=== PATIENT | female | born 1995 | race Caucasian/White ===

== ENCOUNTER 2019-06-10 12:05 | Emergency (ER) | payer MEDICAID, SELFPAY ==
[2019-06-10 12:30] VITALS: BP 124/72; PULSE 96; RESP 18; TEMP 36.6; O2SAT 100; BMI 23.0
[2019-06-10 12:40] VITALS: O2SAT 99
--- NOTE | 2019-06-10 12:41 | XRR_ITS ---
PROCEDURE INFORMATION: Exam: XR Chest, 1 View Exam date and time: 06/10/2019 12:42 PM Age: 24 years old Clinical indication: Cough; Additional info: Cough/congestion TECHNIQUE: Imaging protocol: XR of the chest Views: 1 view. COMPARISON: CR Chest 2 views* [id number] 06/03/2015 1:22 AM FINDINGS: Lungs: Hyperinflation and mild interstitial prominence. No acute infiltrate. Pleural space: No pleural effusion. Heart/Mediastinum: Normal configuration of the heart. Bones/joints: Unremarkable. When correlating with the previous study, no significant interval changes are present. XR/XR chest 1V portable [id number] IMPRESSION: Stable appearance of the chest, not significantly changed from 06/03/2015.
[2019-06-10] MEDS: sodium chloride 0.9% 1,000 ML 999 ML IV (12:57)
--- NOTE | 2019-06-10 13:10 | ED_ITS ---
HPI - General Adult General: Chief complaint: General Medical Stated complaint: cp,congestion,back pain Time Seen by Provider: 06/10/19 12:28 Source: patient Mode of arrival: ambulatory Limitations: no limitations History of Present Illness: HPI narrative: Patient is a 24-year-old female who presents to ED today with complaints of a headache, subjective fever, productive cough, nausea with vomiting, and body aches over the past 2 days; patient reports the cough is caused her to have pain in her chest and shoulders as well as her back but states this is not uncommon as she has chronic back pains; patient states she has not been able to eat or drink much over the past 48 hours due to her nausea; reports 2-3 episodes of vomiting daily-nonbloody; patient denies chance of as she currently has a Mirena Onset (ago): day(s) Relieving factors: eating Exacerbating factors: none Associated symptoms: Reports chest pain, headache(s), nausea and vomiting; Deny dyspnea, malaise, rash, palpitations or syncope Review of Systems Const: Reports: fever (subjective), chills, body aches and change in appetite; Denies: fatigue or malaise Eyes: Denies: change in vision or blurry vision ENMT: Denies: throat pain, enlarged tonsils or painful swallowing Card: Reports: chest pain; Denies: palpitations, irregular heart rhythm, edema, lightheadedness, syncope, pre-syncope, shortness of breath on exertion, shortness of breath when lying down or leg pain with exertion Resp: Reports: productive cough, pain on inspiration, change in phlegm color and chest congestion; Denies: shortness of breath, wheezing, stridor or coughing up blood GI: Reports: nausea and vomiting; Denies: abdominal pain, heartburn/indigestion or diarrhea : Denies: flank pain, difficulty urinating, painful urination, urinary frequency or urinary urgency Musc: Denies: neck pain, extremity pain, extremity swelling or joint pain Skin/Breast: Denies: rash Neuro: Reports: headache; Denies: numbness in extremities, weakness in extremities, changes in sensation, lack of coordination, difficulty walking, dizziness, vertigo or slurred speech PFSH ED PFSH: Statuses (acute, chronic, etc) shown below reflect problem list status as previously entered and may not be historically accurate Social History Smoking and tobacco status: current every day smoker Physical Exam Const: COMMON NORMALS: no apparent distress, average body habitus, oriented x3, no limitations, alert and well nourished HENMT: COMMON NORMALS: normocephalic, head/scalp atraumatic, EAC's normal, TM's normal bilaterally and external nose normal HEAD & SCALP: normocephalic and atraumatic FACE & SINUS: normal facial exam NOSE: external nose normal EXTERNAL AUDITORY CANAL: EAC's normal TYMPANIC MEMBRANE: TM's normal bilaterally MOUTH: oral and palatal mucosa normal THROAT: posterior oropharynx normal, tonsils normal and uvula midline Eye: COMMON NORMALS: PERRL and EOMs intact bilaterally PUPIL: Yes PERRL Neck/C-Spine: COMMON NORMALS: full ROM, no lymphadenopathy, supple and no meningeal signs Chest: COMMONS NORMALS: inspection of chest normal Resp: COMMON NORMALS: normal respiratory effort and clear to auscultation bilaterally AUSCULTATION: clear to auscultation bilaterally Cardio: COMMON NORMALS: regular rate and regular rhythm RATE: regular rate RHYTHM: regular rhythm GI: COMMON NORMALS: normal to inspection, nondistended, normoactive bowel sounds, soft to palpation, non-tender, no hepatosplenomegaly and no masses PALPATION: Yes soft and Yes no hepatosplenomegaly : COMMON NORMALS: Yes no CVA tenderness BLADDER/KIDNEY EXAM: Yes no CVA tenderness Back/Pelvis: COMMON NORMALS: no CVA tenderness, thoraco-lumbar ROM normal and straight leg raise negative bilaterally Extremity: COMMON NORMALS: normal to inspection Neuro: COMMON NORMALS: oriented x3 SENSORIUM/ORIENTATION: Yes alert MENINGEAL SIGNS: Yes no meningeal signs Skin: COMMON NORMALS: no rashes or lesions noted GENERAL SKIN EXAM: no rashes or lesions noted Course Vital Signs: Vital signs: Vital Signs Temperature 97.9 F 06/10/19 12:30 Pulse Rate 96 06/10/19 12:30 Respiratory Rate 18 06/10/19 12:30 Blood Pressure 124/72 06/10/19 12:30 Pulse Oximetry 99 06/10/19 12:40 MDM - General Adult Lab Data: Labs: Lab Results 06/10/19 06/10/19 06/10/19 Range/Units 12:50 12:50 12:50 WBC 5.9 (4.0-10.0) 10^3/ uL RBC 4.63 (4.1-5.3) 10^6/u L Hgb 13.7 (11.5-15.3) g/dL Hct 40.2 (37.0-47.0) % MCV 86.8 (81-99) fL MCH 29.6 (28.0-34.0) pg MCHC 34.1 (30.0-36.0) g/dL RDW 12.1 (12.1-15.1) % Plt Count 290 (130-400) 10^3/c mm MPV 10.9 H (7.4-10.4) fL Neut % (Auto) 71.5 % Lymph % (Auto) 20.3 % [place] % (Auto) 6.0 % Eos % (Auto) 1.0 % Baso % (Auto) 1.0 % Neut # (Auto) 4.2 (1.8-7.7) 10^3/u L Lymph # (Auto) 1.2 (0.8-4.8) 10^3/u L [place] # (Auto) 0.4 (0.2-0.9) 10^3/u L Eos # (Auto) 0.1 (0.0-0.8) 10^3/u L Baso # (Auto) 0.1 (0.0-0.1) 10^3/u L Nucleated RBC % (a uto) 0 % Nucleated RBCs # 0.0 /100WBC Sodium 139 (136-145) mmol/L Potassium 3.7 (3.5-5.1) mmol/L Chloride 101 (98-107) mmol/L Carbon Dioxide 27 (22-29) mmol/L Anion Gap 14.7 (5-19) BUN 10 (6-20) mg/dL Creatinine 0.8 (0.5-0.9) mg/dL GFR Calculation 88.9 L (90-130) mL/min Glucose 79 (74-109) mg/dL Calcium 9.9 (8.5-10.5) mg/dL Total Bilirubin 0.6 (0.15-1.2) mg/dL AST 21 (0-32) U/L ALT 18 (0-33) U/L Alkaline Phosphata se 100 (35-105) IU/L Total Protein 7.8 (6.6-8.7) g/dL Albumin 4.6 (3.5-5.2) g/dL Globulin 3.2 (1.3-4.6) g/dL HCG, Qual Negative (Negative) Urine Color (Yellow) Urine Appearance (CLEAR) Urine pH (5-7) Ur Specific Gravit y (1.005-1.030) Urine Protein (Negative) Urine Glucose (UA) (Normal) Urine Ketones (Negative) Urine Occult Blood (Negative) Urine Nitrate (Negative) Urine Bilirubin (NEGATIVE) Urine Urobilinogen (Negative) mg/dL Ur Leukocyte Dawna ase (Negative) Influenza Type A A g (Negative) POC Influenza B Ag (Negative) 06/10/19 06/10/19 Range/Units 12:50 13:15 WBC (4.0-10.0) 10^3/ uL RBC (4.1-5.3) 10^6/u L Hgb (11.5-15.3) g/dL Hct (37.0-47.0) % MCV (81-99) fL MCH (28.0-34.0) pg MCHC (30.0-36.0) g/dL RDW (12.1-15.1) % Plt Count (130-400) 10^3/c mm MPV (7.4-10.4) fL Neut % (Auto) % Lymph % (Auto) % [place] % (Auto) % Eos % (Auto) % Baso % (Auto) % Neut # (Auto) (1.8-7.7) 10^3/u L Lymph # (Auto) (0.8-4.8) 10^3/u L [place] # (Auto) (0.2-0.9) 10^3/u L Eos # (Auto) (0.0-0.8) 10^3/u L Baso # (Auto) (0.0-0.1) 10^3/u L Nucleated RBC % (a uto) % Nucleated RBCs # /100WBC Sodium (136-145) mmol/L Potassium (3.5-5.1) mmol/L Chloride (98-107) mmol/L Carbon Dioxide (22-29) mmol/L Anion Gap (5-19) BUN (6-20) mg/dL Creatinine (0.5-0.9) mg/dL GFR Calculation (90-130) mL/min Glucose (74-109) mg/dL Calcium (8.5-10.5) mg/dL Total Bilirubin (0.15-1.2) mg/dL AST (0-32) U/L ALT (0-33) U/L Alkaline Phosphata se (35-105) IU/L Total Protein (6.6-8.7) g/dL Albumin (3.5-5.2) g/dL Globulin (1.3-4.6) g/dL HCG, Qual (Negative) Urine Color Yellow (Yellow) Urine Appearance Clear (CLEAR) Urine pH 7 (5-7) Ur Specific Gravit y 1.005 (1.005-1.030) Urine Protein Neg (Negative) Urine Glucose (UA) Norm (Normal) Urine Ketones Negative (Negative) Urine Occult Blood Neg (Negative) Urine Nitrate Negative (Negative) Urine Bilirubin Neg (NEGATIVE) Urine Urobilinogen Norm (Negative) mg/dL Ur Leukocyte Dawna ase Negative (Negative) Influenza Type A A g Negative (Negative) POC Influenza B Ag Negative (Negative) Imaging Data^: CXR: Radiologist's impression: [place] [address] XRay Report Signed Patient: Tejal Frederick Unit #: [id number] : [id number] Age/Sex: 24 / F ADM Date: 06/10/19 Loc: ER Room/Bed: Attending Dr: Ordering Provider/Ordering MD: Karime Cedeno Date of Service: 06/10/19 Procedure(s): XR chest 1V portable [id number] Accession Number(s): [id number] Report Number: [id number] PROCEDURE INFORMATION: Exam: XR Chest, 1 View Exam date and time: 06/10/2019 12:42 PM Age: 24 years old Clinical indication: Cough; Additional info: Cough/congestion TECHNIQUE: Imaging protocol: XR of the chest Views: 1 view. COMPARISON: CR Chest 2 views* [id number] 06/03/2015 1:22 AM FINDINGS: Lungs: Hyperinflation and mild interstitial prominence. No acute infiltrate. Pleural space: No pleural effusion. Heart/Mediastinum: Normal configuration of the heart. Bones/joints: Unremarkable. When correlating with the previous study, no significant interval changes are present. XR/XR chest 1V portable [id number] IMPRESSION: Stable appearance of the chest, not significantly changed from 06/03/2015. Dictated By: Cristi Rowe MD Signed By: Cristi Rowe MD Signed Date/Time: 06/10/19 1346 DD/ 1348 Discharge Plan Discharge Patient Disposition: Home, Self-Care Clinical Impression: Viral illness Condition: Stable Prescriptions: New ondansetron HCl [Zofran] 4 mg tablet 4 mg PO Q6H PRN (Reason: nausea and vomiting) Qty: 14 RF: 0 Discharge Orders: Discharge Order (Routine); Ordered 06/10/19 Ordered By: Karime Cedeno Referrals: Nida Cole MD [Primary Care Provider] - Discharge Diet: Usual diet Discharge Activity: Increase activity as tolerated Stand Alone Forms: Work/School Release Coding Level of Care Code ED Negative Developer for Chg Fwd Exam Problem Focused
[2019-06-10 13:38] LABS: Basophils # 0.1 10^3/uL (0.0-0.1); Eosinophils # 0.1 10^3/uL (0.0-0.8); Hematocrit 40.2 % (37.0-47.0); Hemoglobin 13.7 g/dL (11.5-15.3); Lymphocytes # 1.2 10^3/uL (0.8-4.8); Lymphocytes % 20.3 %; Mean Corpuscular HGB Conc 34.1 g/dL (30.0-36.0); Mean Corpuscular Hemoglobin 29.6 pg (28.0-34.0); Mean Corpuscular Volume 86.8 fL (81-99); Mean Platelet Volume 10.9 fL (7.4-10.4); Monocytes # 0.4 10^3/uL (0.2-0.9); Neutrophils # 4.2 10^3/uL (1.8-7.7); Neutrophils % 71.5 %; Nucleated Red Blood Cells % 0 %; Platelet Count 290 10^3/cmm (130-400); Red Blood Count 4.63 10^6/uL (4.1-5.3); Red Cell Distribution Width 12.1 % (12.1-15.1); White Blood Count 5.9 10^3/uL (4.0-10.0)
[2019-06-10 13:43] LABS: Influenza A by IFA Negative (Negative); Influenza B by IFA Negative (Negative)
[2019-06-10 13:46] LABS: HCG, Serum Qual Negative (Negative)
[2019-06-10 13:46] LABS: Add Urine Microscopic? NO
[2019-06-10 13:49] LABS: Alanine Aminotransferase 18 U/L (0-33); Albumin Level 4.6 g/dL (3.5-5.2); Alkaline Phosphatase 100 IU/L (35-105); Anion Gap 14.7 (5-19); Aspartate Amino Transferase 21 U/L (0-32); Blood Urea Nitrogen 10 mg/dL (6-20); Calcium 9.9 mg/dL (8.5-10.5); Carbon Dioxide 27 mmol/L (22-29); Chloride 101 mmol/L (98-107); Globulin 3.2 g/dL (1.3-4.6); Glomerular Filtration Rate 88.9 mL/min (90-130); Glucose 79 mg/dL (74-109); Potassium 3.7 mmol/L (3.5-5.1); Sodium 139 mmol/L (136-145); Total Bilirubin 0.6 mg/dL (0.15-1.2); Total Protein 7.8 g/dL (6.6-8.7)
[2019-06-10 14:01] LABS: Bilirubin Urine Neg (NEGATIVE); Blood Urine Neg (Negative); Glucose Urine UA Norm (Normal); Ketones Urine Negative (Negative); Leukocyte Esterase Urine Negative (Negative); Nitrate Urine Negative (Negative); Protein Urine Neg (Negative); Specific Gravity, Urine 1.005 (1.005-1.030); Urine Appearance Clear (CLEAR); Urine Color Yellow (Yellow); Urobilinogen Urine Norm (Negative); pH Urine 7 (5-7)
[2019-06-10 14:32] VITALS: BP 96/69; PULSE 80; RESP 17; O2SAT 99
== END 2019-06-10 14:32 | disposition home or self-care (01) ==
PROVIDERS: Emergency Provider Physician Assistant; Family Provider Family Medicine; PCP Family Medicine
DX: B34.9 Viral infection, unspecified (principal); F17.210 Nicotine dependence, cigarettes, uncomplicated
CPT/HCPCS: 36415; 71045; 80053; 81003; 84703; 85025; 87804; 96360; 99283; J7030

== ENCOUNTER → 2019-07-13 15:05 | Outpatient (BNVA) | payer MEDICAID, SELFPAY | PROVIDERS: Family Provider Family Medicine; PCP Family Medicine; Visit Provider Obstetrics & Gynecology | DX: N89.8 Other specified noninflammatory disorders of vagina (principal); R30.0 Dysuria; N73.0 Acute parametritis and pelvic cellulitis; N73.9 Female pelvic inflammatory disease, unspecified | CPT/HCPCS: 81003; 87491; 87591; 87661 ==

== ENCOUNTER 2019-07-18 15:58 | Emergency (ER) | payer MEDICAID, SELFPAY ==
--- NOTE | 2019-07-18 16:15 | ED_ITS ---
Entered by Alexa Kong, acting as scribe for Shayan De La Cruz DO HPI - Back Pain/Injury General: Chief Complaint: Back Pain/Injury Stated Complaint: back pain Time Seen by Provider: 07/18/19 16:15 Review of Systems ENMT: Denies: enlarged tonsils PFSH ED PFSH: Medical History Displacement of lumbar disc with radiculopathy Encounter for long-term opiate analgesic use Opioid contract exists Pelvic pain in female Peripheral neuralgia Smoker Surgical History (Updated 07/19/19 @ 14:48 by CHAI Mcmullen) Previous back surgery 06/08/2018- Dr. Lizama, bilateral L4-L5 hemilaminotomy/discectomy/foraminotomy S/P plastic surgery 2007 after dog bite to face Social History Smoking and tobacco status: current every day smoker cigarettes Packs smoked per day: 0.5 Alcohol intake: never Course ED course: Reviewed and discussed patient with Raghav Carmen. Agree with assessment and plan Vital Signs: Vital signs: Vital Signs Pulse Rate 72 07/18/19 18:00 Respiratory Rate 16 07/18/19 18:00 Blood Pressure 104/61 07/18/19 18:00 Pulse Oximetry 98 07/18/19 18:00 Discharge Plan Discharge Patient Disposition: Home, Self-Care Clinical Impression: Chronic back pain Qualifiers: Back pain location: low back pain Back pain laterality: bilateral Sciatica presence: with sciatica Sciatica laterality: bilateral sciatica Qualified Code(s): M54.42 - Lumbago with sciatica, left side Condition: Stable Prescriptions: No Action Mirena 20 mcg/24 hours (5 yrs) 52 mg intrauterine device INTRAUTERI RF: 0 doxycycline hyclate 100 mg capsule 100 mg PO BID 14 Days Qty: 28 RF: 0 metronidazole [Flagyl] 500 mg tablet 500 mg PO BID 14 Days Qty: 28 RF: 0 hydrocodone-acetaminophen 10-325 mg tablet 1 tab PO Q6H PRN (Reason: pain) 30 Days Qty: 120 RF: 0 hydrocodone-acetaminophen 10-325 mg tablet 1 tab PO Q6H PRN (Reason: pain) 30 Days Qty: 120 RF: 0 Discharge Orders: Discharge Order (Routine); Ordered 07/18/19 Ordered By: Trent Carmen Referrals: Nida Cole MD [Primary Care Provider] - Discharge Diet: Usual diet Discharge Activity: Resume usual activity Patient Instructions: Low Back Strain (ED) Activity Restrictions/Additional Instructions: Keep appointment 1:00 tomorrow at the pain management office. Discharge Date/Time: 07/18/19 18:01 Coding Level of Care Code ED Food Service Associate for g Sydni The documentation recorded by the Dilan ambrosio Bridget Annette, accurately reflects the service I personally performed and the decisions made by Dorothy vazquez Curtis L, DO Jul 18, 2019 15:58
[2019-07-18 16:16] VITALS: BP 106/65; PULSE 75; RESP 16; O2SAT 99; BMI 23.0
[2019-07-18] MEDS: HYDROcodone-acetaminophen 7.5-325 mg Tablet 1 TAB PO (16:40)
--- NOTE | 2019-07-18 16:42 | W.ED.BACK ---
HPI - Back Pain/Injury General: Chief Complaint: Back Pain/Injury Stated Complaint: back pain Time Seen by Provider: 07/18/19 16:15 History of Present Illness: HPI Narrative: Patient missed pain management appointment on 221 now out of pain medicine says she cannot get another appointment needs her medicine. Pertinent past history: prior back pain Onset (ago): year(s) Timing: constant and progressively worsening Severity: moderate Similar Symptoms Previously: Yes Review of Systems Narrative: Patient is desiring a prescription for pain medicine. Has chronic back pain worsening exacerbated by work. Musc: Reports: back pain Psych: Denies: anxiety or depression PFSH ED PFSH: Social History Smoking and tobacco status: current every day smoker cigarettes Packs smoked per day: 0.5 Alcohol intake: never Physical Exam Const: COMMON NORMALS: no apparent distress Psych: COMMON NORMALS: mental status grossly normal Course Vital Signs: Vital signs: Vital Signs Pulse Rate 75 07/18/19 16:16 Respiratory Rate 16 07/18/19 16:16 Blood Pressure 106/65 07/18/19 16:16 Pulse Oximetry 99 07/18/19 16:16 MDM - Back Pain/Injury MDM Narrative: Medical decision making narrative: I spoke with the pain management clinic they have an appointment at 1300 for her tomorrow. Strong encourage patient to keep that appointment we will give her 1 pain pill here to help with her pain and she is to follow-up on her appointment. Discharge Plan Discharge Prescriptions: No Action hydrocodone-acetaminophen 10-325 mg tablet 1 tab PO Q6H PRNRF: 0 Mirena 20 mcg/24 hours (5 yrs) 52 mg intrauterine device INTRAUTERI RF: 0 doxycycline hyclate 100 mg capsule 100 mg PO BID 14 Days Qty: 28 RF: 0 metronidazole [Flagyl] 500 mg tablet 500 mg PO BID 14 Days Qty: 28 RF: 0 Coding Level of Care Code ED Emd Special Education Teacher for Adriana Troy
[2019-07-18 18:00] VITALS: BP 104/61; PULSE 72; RESP 16; O2SAT 98
== END 2019-07-18 18:01 | disposition home or self-care (01) ==
LOC: ER 16:53
PROVIDERS: Emergency Provider Nurse Practitioner Family; Family Provider Family Medicine; PCP Family Medicine
DX: M54.9 Dorsalgia, unspecified (principal); G89.29 Other chronic pain; F17.210 Nicotine dependence, cigarettes, uncomplicated; Z79.891 Long term (current) use of opiate analgesic
CPT/HCPCS: 12345; 99281; 99283

== ENCOUNTER → 2019-07-19 14:16 | Outpatient (BNVA) | payer MEDICAID, SELFPAY | PROVIDERS: Family Provider Family Medicine; PCP Family Medicine; Visit Provider Nurse Practitioner | DX: G89.29 Other chronic pain (principal); M54.42 Lumbago with sciatica, left side; M54.41 Lumbago with sciatica, right side; F17.210 Nicotine dependence, cigarettes, uncomplicated; Z79.891 Long term (current) use of opiate analgesic; Z71.6 Tobacco abuse counseling | CPT/HCPCS: 99214 ==

== ENCOUNTER 2019-08-01 14:22 | Emergency (ER) | payer MEDICAID, SELFPAY ==
[2019-08-01 14:27] VITALS: BP 127/82; PULSE 86; RESP 16; TEMP 36.4; O2SAT 100; BMI 21.7
--- NOTE | 2019-08-01 14:31 | ED_ITS ---
Entered by Francisca Roberson, acting as scribe for Frances Dietrich Aug 01, 2019 14:22 HPI - Abdominal Pain General: Chief Complaint: Abdominal Pain Stated Complaint: FEVER, COUGH Time Seen by Provider: 08/01/19 14:25 Source: patient and RN notes reviewed Mode of arrival: ambulatory Limitations: no limitations History of Present Illness: HPI narrative: 24 yo female presents to ED with complaints of abdominal pain and fever (patient is afbrile here). She states she has RUQ abdominal pain that began 3 days ago. The patient has past history of pelvic inflammatory disease. She denies any vaginal discharge or bleeding presently. She has been on her antibiotics for PID for at least 2 weeks. Her abdominal pain began today. She has had associated nausea and vomiting. She denies any history of gallbladder disease or other surgeries on her abdomen. She denies any right lower quadrant abdominal pain. MD elicited complaint: abdominal pain Pertinent past history: other (pelvic inflammatory disease) Onset (ago): day(s) (2) Pain Consistency: constant Location: RUQ Severity: moderate Quality: aching Radiation: none Migration to: no migration Exacerbating factors: nothing Relieving factors: nothing Context: history of similar episodes Associated Symptoms: Reports no associated symptoms and vomiting; Denies chills, coffee ground emesis, constipation, GI cramping, diarrhea, dysuria, fever(s), hematochezia, hematuria, hematemesis, melena, nausea and syncope Treatments prior to arrival: NSAIDs Review of Systems General: Reports: other (negative unless marked) Const: Denies: fever, chills, body aches, fatigue, malaise or diaphoresis Eyes: Denies: change in vision or blurry vision ENMT: Denies: throat pain, painful swallowing, hoarseness, ear pain, ear discharge, Change in hearing or nasal discharge Card: Denies: chest pain, palpitations, irregular heart rhythm, syncope, pre- syncope, shortness of breath on exertion or shortness of breath when lying down Resp: Denies: shortness of breath, productive cough, non-productive cough, wheezing, coughing up blood or chest congestion GI: Reports: vomiting; Denies: nausea, vomiting blood, coffee grounds in vomit, diarrhea, constipation, cramping, blood in stool or black tarry stool : Denies: flank pain, painful urination, urinary frequency, urinary urgency, decreased urine ouput, urinary incontinence or blood in urine Musc: Denies: neck pain, back pain, extremity pain, extremity swelling, joint pain, joint swelling, joint warmth or joint stiffness Skin/Breast: Denies: rash, skin tenderness or yellow skin Neuro: Denies: headache, numbness in extremities, weakness in extremities, changes in sensation, lack of coordination, difficulty walking, dizziness, vertigo or confusion Endo: Denies: excessive thirst, tired all the time, cold intolerance, excessive sweating, flushing or hot flashes Gómez/Lymph: Denies: easy bruising, easy bleeding, petechiae or enlarged lymph nodes All/Imm: Denies: hives, throat swelling, tongue swelling, facial swelling or acute wheezing PFSH ED PFSH: Medical History Displacement of lumbar disc with radiculopathy Encounter for long-term opiate analgesic use Opioid contract exists Pelvic pain in female Peripheral neuralgia Smoker Surgical History Previous back surgery 06/08/2018- Dr. Lizama, bilateral L4-L5 hemilaminotomy/discectomy/foraminotomy S/P plastic surgery 2007 after dog bite to face Family History Grandmother Lung cancer maternal Mother Ovarian cancer Social History Smoking and tobacco status: current every day smoker cigarettes Packs smoked per day: 0.5 Alcohol intake: never Physical Exam Const: COMMON NORMALS: no apparent distress, oriented x3, no limitations, healthy appearing and well nourished EXAM LIMITATIONS: no altered mental status GENERAL APPEARANCE: cooperative, well kempt and well developed ORIENTATION/CONSCIOUSNESS: Yes awake HENMT: COMMON NORMALS: normocephalic, head/scalp atraumatic, hearing grossly normal bilaterally, external ears normal, EAC's normal, external nose normal and moist oral mucous membranes HEAD & SCALP: normal to inspection, normocephalic and atraumatic FACE & SINUS: normal facial exam and face symmetric NOSE: external nose normal and nares normal EXTERNAL EAR: Yes external ears normal EXTERNAL AUDITORY CANAL: EAC's normal MOUTH: oral and palatal mucosa normal and tongue normal Eye: COMMON NORMALS: PERRL, EOMs intact bilaterally, conjunctivae normal and no scleral icterus GENERAL EYE: normal appearance of both eyes and normal light reflex CONJUNCTIVA: Yes conjunctivae normal SCLERA: sclerae normal CORNEA: Yes corneas normal PUPIL: Yes PERRL DIRECT OPHTHALMOSCOPY: Yes normal light reflex Neck/C-Spine: COMMON NORMALS: full ROM, no lymphadenopathy, supple, no meningeal signs and no JVD GENERAL: Yes normal visual inspection and Yes trachea midline CERVICAL SPINE: Yes cervical ROM normal Chest: COMMONS NORMALS: inspection of chest normal and palpation of chest normal Resp: COMMON NORMALS: normal respiratory effort, no retractions, no use of accessory muscles and clear to auscultation bilaterally EFFORT & INSPECTION: Yes able to speak in complete sentences AUSCULTATION: clear to auscultation bilaterally Cardio: COMMON NORMALS: no JVD, regular rate, regular rhythm, S1 normal heart sound, S2 normal heart sound, no gallops, no clicks, no murmurs and no rub JUGULAR VENOUS DISTENTION: no JVD RATE: regular rate RHYTHM: regular rhythm HEART SOUNDS: S1 normal and S2 normal GI: COMMON NORMALS: soft to palpation, no hepatosplenomegaly and no masses INSPECTION: Yes normal to inspection PALPATION: Yes soft, Yes tender Details: RUQ (Mild without rebound or guarding) and Yes no hepatosplenomegaly : COMMON NORMALS: Yes no CVA tenderness BLADDER/KIDNEY EXAM: Yes no CVA tenderness Back/Pelvis: COMMON NORMALS: no CVA tenderness, thoracic and lumbar spine normal to inspection, no thoracic nor lumbar tenderness and thoraco-lumbar ROM normal Extremity: COMMON NORMALS: normal to inspection, full ROM, normal capillary refill, no joint enlargement, no clubbing, cyanosis or edema and no calf tenderness Neuro: COMMON NORMALS: oriented x3, CN's II-XII intact bilaterally, moves all extremities, no focal motor deficits and no sensory deficits noted MENINGEAL SIGNS: Yes no meningeal signs Psych: COMMON NORMALS: mental status grossly normal, thought process normal, cooperative, affect normal, speech normal and activity/motor behavior normal APPEARANCE: Yes well kempt SPEECH: Yes normal speech THOUGHT PROCESS: normal thought process Skin: COMMON NORMALS: no rashes or lesions noted, skin turgor normal, no jaundice, no petechiae and no mottling GENERAL SKIN EXAM: no rashes or lesions noted and turgor normal Course ED course: Arrival -patient arrives with right upper quadrant pain and subje ctive fever with nausea and vomiting. She is afebrile here and her vital signs are stable. She is recently been treated for pelvic inflammatory disease but claims to be taking her medication and denies any vaginal discharge or bleeding. Her differential includes gallbladder disease, pyelonephritis, Luiz-Efra Shayan syndrome, occult pneumonia among others. As the patient has no objective fever here coughing pneumonia is ruled out. We will proceed with work-up for the remaining as well as other possible differential diagnosis. Vital Signs: Vital signs: Vital Signs Temperature 97.5 F L 08/01/19 14:27 Pulse Rate 59 L 08/01/19 17:41 Respiratory Rate 18 08/01/19 17:41 Blood Pressure 119/65 08/01/19 17:41 Pulse Oximetry 98 08/01/19 17:41 MDM - Abdominal Pain Lab Data: Labs: Lab Results 08/01/19 08/01/19 08/01/19 Range/Units 14:50 14:50 14:50 WBC 4.7 (4.0-10.0) 10^3/ uL RBC 5.09 (4.1-5.3) 10^6/u L Hgb 15.3 (11.5-15.3) g/dL Hct 46.9 (37.0-47.0) % MCV 92.1 (81-99) fL MCH 30.1 (28.0-34.0) pg MCHC 32.6 (30.0-36.0) g/dL RDW 12.4 (12.1-15.1) % Plt Count 246 (130-400) 10^3/c mm MPV 10.2 (7.4-10.4) fL Neut % (Auto) 71.6 % Lymph % (Auto) 23.4 % Chase % (Auto) 2.6 % Eos % (Auto) 1.1 % Baso % (Auto) 1.1 % Neut # (Auto) 3.4 (1.8-7.7) 10^3/u L Lymph # (Auto) 1.1 (0.8-4.8) 10^3/u L Chase # (Auto) 0.1 L (0.2-0.9) 10^3/u L Eos # (Auto) 0.1 (0.0-0.8) 10^3/u L Baso # (Auto) 0.1 (0.0-0.1) 10^3/u L Nucleated RBC % (a uto) 0 % Nucleated RBCs # 0.0 /100WBC Sodium 139 (136-145) mmol/L Potassium 3.9 (3.5-5.1) mmol/L Chloride 103 (98-107) mmol/L Carbon Dioxide 24 (22-29) mmol/L Anion Gap 15.9 (5-19) BUN 7 (6-20) mg/dL Creatinine 0.6 (0.5-0.9) mg/dL GFR Calculation 123.9 (90-130) mL/min Glucose 98 (65-115) mg/dL Calculated Osmolal ity 284 L (285-295) mOsm/k g Calcium 10.0 (8.5-10.5) mg/dL Total Bilirubin 0.6 (0.15-1.2) mg/dL AST 22 (0-32) U/L ALT 13 (0-33) U/L Alkaline Phosphata se 58 (35-105) IU/L Total Protein 7.9 (6.6-8.7) g/dL Albumin 4.8 (3.5-5.2) g/dL Globulin 3.1 (1.3-4.6) g/dL Lipase 43 (13-60) U/L HCG, Qual Negative (Negative) Urine Color (Yellow) Urine Appearance (CLEAR) Urine pH (5-7) Ur Specific Gravit y (1.005-1.030) Urine Protein (Negative) Urine Glucose (UA) (Normal) Urine Ketones (Negative) Urine Blood (Negative) Urine Nitrate (Negative) Urine Bilirubin (NEGATIVE) Urine Urobilinogen (Negative) mg/dL Ur Leukocyte Dawna ase (Negative) Urine RBC (0-2) /hpf Urine WBC (0-5) /hpf Ur Squamous Epith Cells (0-5) Urine Bacteria (NONE) 07/31/ Range/Units 15:00 WBC (4.0-10.0) 10^3/ uL RBC (4.1-5.3) 10^6/u L Hgb (11.5-15.3) g/dL Hct (37.0-47.0) % MCV (81-99) fL MCH (28.0-34.0) pg MCHC (30.0-36.0) g/dL RDW (12.1-15.1) % Plt Count (130-400) 10^3/c mm MPV (7.4-10.4) fL Neut % (Auto) % Lymph % (Auto) % Chase % (Auto) % Eos % (Auto) % Baso % (Auto) % Neut # (Auto) (1.8-7.7) 10^3/u L Lymph # (Auto) (0.8-4.8) 10^3/u L Chase # (Auto) (0.2-0.9) 10^3/u L Eos # (Auto) (0.0-0.8) 10^3/u L Baso # (Auto) (0.0-0.1) 10^3/u L Nucleated RBC % (a uto) % Nucleated RBCs # /100WBC Sodium (136-145) mmol/L Potassium (3.5-5.1) mmol/L Chloride (98-107) mmol/L Carbon Dioxide (22-29) mmol/L Anion Gap (5-19) BUN (6-20) mg/dL Creatinine (0.5-0.9) mg/dL GFR Calculation (90-130) mL/min Glucose (65-115) mg/dL Calculated Osmolal ity (285-295) mOsm/k g Calcium (8.5-10.5) mg/dL Total Bilirubin (0.15-1.2) mg/dL AST (0-32) U/L ALT (0-33) U/L Alkaline Phosphata se (35-105) IU/L Total Protein (6.6-8.7) g/dL Albumin (3.5-5.2) g/dL Globulin (1.3-4.6) g/dL Lipase (13-60) U/L HCG, Qual (Negative) Urine Color Straw (Yellow) Urine Appearance Clear (CLEAR) Urine pH 7 (5-7) Ur Specific Gravit y 1.005 (1.005-1.030) Urine Protein Neg (Negative) Urine Glucose (UA) Norm (Normal) Urine Ketones Negative (Negative) Urine Blood Neg (Negative) Urine Nitrate Negative (Negative) Urine Bilirubin Neg (NEGATIVE) Urine Urobilinogen Norm (Negative) mg/dL Ur Leukocyte Dawna ase Negative (Negative) Urine RBC None (0-2) /hpf Urine WBC None (0-5) /hpf Ur Squamous Epith Cells 0-4 H (0-5) Urine Bacteria Trace (NONE) Imaging Data ^: US: Radiologist's impression: [place] [address] Ultrasound Report Signed Patient: Jose Frederick #: [id number] : 1995Acct#:[id number] Age/Sex: 24 / FADM Date: 08/01/19 Loc: ERRoom/Bed: Attending Dr: Ordering Provider/Ordering MD: Frances Dietrich DO Date of Service: 08/01/19 Procedure(s): US gall bladder [id number] Accession Number(s): [id number] Report Number: [id number] WS: [id number] Gallbladder ultrasound, 08/01/2019 Clinical Data: Pain Comparison: None. Findings: The gallbladder shows no sludge or stone. The wall measures 0.1 cm with no pericholecystic fluid. The common bile duct is 0.1 cm and there are no intrahepatic ductal abnormalities. Liver shows no cysts, masses or dilated intrahepatic ducts. The pancreas is not obscured by overlying bowel gas, and no cyst, pseudocyst, or evidence of pancreatitis is noted. Right kidney measures 4.21 x 4.92 x 10.7 cm and no cyst, masses or hydronephrosis can be seen. The aorta and inferior vena cava show no vascular abnormalities. US/US gall bladder [id number] Impression: Negative gallbladder ultrasound. Dictated By:Pearl Apple MD Signed By:Pearl Apple MDSigned Date/Time:08/01/[address] [address] Ultrasound Report Signed Patient: Jose Frederick #: [id number] : 1995Acct#:[id number] Age/Sex: 24 / FADM Date: 08/01/19 Loc: ERRoom/Bed: Attending Dr: Ordering Provider/Ordering MD: Frances Dietrich DO Date of Service: 08/01/19 Procedure(s): US transvaginal 01653 Accession Number(s): [id number] Report Number: [id number] WS: [id number] Pelvic ultrasound, 08/01/2019 Clinical Data: Pain Comparison: None. Findings: The uterus measures 3.96 cm x 5.5 cm x 4.0 cm. The endometrium is 0.3 cm. No intrauterine or abnormal intrauterine mass is seen. Areas and IUD in the endometrium The left ovary measures 3.0 cm x 2.1 cm x 1.9 cm with follicular cysts but no masses. The right ovary measures 3.3 cm x 2.4 cm x 1.8 cm with follicular cysts but no masses.. There is a small amount of free fluid in the cul-de-sac. US/US transvaginal [id number] Impression: 1. Intrauterine device in proper location in the endometrium of the uterus. 2. Minimal fluid in the cul-de-sac. Dictated By:Pearl Apple MD Signed By:Pearl Appleigned Date/Time:08/01/19 Discharge Plan Discharge Patient Disposition: Home, Self-Care Clinical Impression: Abdominal pain Qualifiers: Abdominal location: right upper quadrant Qualified Code(s): R10.11 - Right upper quadrant pain Condition: Stable Prescriptions: No Action Mirena 20 mcg/24 hours (5 yrs) 52 mg intrauterine device See Rx Instructions .ROUTE .COMPLEX RF: 0 hydrocodone-acetaminophen 10-325 mg tablet 1 tab PO Q6H PRN (Reason: pain) 30 Days Qty: 120 RF: 0 methocarbamol 750 mg tablet 750 mg PO TID PRN (Reason: Spasms) RF: 0 Discharge Orders: Discharge Order (Routine); Ordered 08/01/19 Ordered By: Frances Dietrich Referrals: Wing Raymond MD [Physician] - 1-3 days Nida Cole MD [Primary Care Provider] - Federico Goncalves MD [Physician] - 1-3 days Discharge Diet: Advance as tolerated Discharge Activity: Increase activity as tolerated Patient Instructions: Abdominal Pain (ED) Activity Restrictions/Additional Instructions: Please return to the ER immediately for any of the signs or symptoms listed on your discharge instruction sheets, worsening/changing of your symptoms, you are not getting better as quickly as expected, or for ANY other cause or concerns. If your pain worsens or changes in any way please return to the ER immediately for recheck. Follow-up with Dr. Cole or Dr. Raymond to ensure your pelvic inflammatory disease has completely resolved. Follow-up with Dr. Goncalves for further evaluation of gallbladder dysfunction. Stand Alone Forms: Work/School Release Discharge Date/Time: 08/01/19 17:42 Coding Level of Care Code ED Buyer Liaison for Chg Fwd Exam Comprehensive The documentation recorded by the Da ambrosio Valerie R, accurately reflects the service I personally performed and the decisions made by , Frances Dietrich Aug 01, 2019 14:22
--- NOTE | 2019-08-01 14:42 | PC.PHAR ---
pt had rx filled on 07/16/2019 for doxycycline hyclate 100mg bid for 14 days and metronnidazole 500mg bid for 14 days-pt states she finished these medications but isnt sure how long ago
[2019-08-01 14:52] VITALS: RESP 18; O2SAT 100
[2019-08-01] MEDS: morphine 4 mg/mL SDV 1 mL IVP (14:52)
[2019-08-01] MEDS: ondansetron 2 mg/ML SDV 2 mL 4 MG IVP (14:52)
[2019-08-01] MEDS: sodium chloride 0.9% 1,000 ML 100 ML IV (14:56)
[2019-08-01 14:59] LABS: Basophils # 0.1 10^3/uL (0.0-0.1); Basophils % 1.1 %; Eosinophils # 0.1 10^3/uL (0.0-0.8); Eosinophils % 1.1 %; Hematocrit 46.9 % (37.0-47.0); Hemoglobin 15.3 g/dL (11.5-15.3); Lymphocytes # 1.1 10^3/uL (0.8-4.8); Lymphocytes % 23.4 %; Mean Corpuscular HGB Conc 32.6 g/dL (30.0-36.0); Mean Corpuscular Hemoglobin 30.1 pg (28.0-34.0); Mean Corpuscular Volume 92.1 fL (81-99); Mean Platelet Volume 10.2 fL (7.4-10.4); Monocytes # 0.1 10^3/uL (0.2-0.9); Monocytes % 2.6 %; Neutrophils # 3.4 10^3/uL (1.8-7.7); Neutrophils % 71.6 %; Nucleated Red Blood Cells % 0 %; Platelet Count 246 10^3/cmm (130-400); Red Blood Count 5.09 10^6/uL (4.1-5.3); Red Cell Distribution Width 12.4 % (12.1-15.1); White Blood Count 4.7 10^3/uL (4.0-10.0)
[2019-08-01 15:17] LABS: HCG, Serum Qual Negative (Negative)
[2019-08-01 15:18] LABS: Alanine Aminotransferase 13 U/L (0-33); Albumin Level 4.8 g/dL (3.5-5.2); Alkaline Phosphatase 58 IU/L (35-105); Anion Gap 15.9 (5-19); Aspartate Amino Transferase 22 U/L (0-32); Blood Urea Nitrogen 7 mg/dL (6-20); Carbon Dioxide 24 mmol/L (22-29); Chloride 103 mmol/L (98-107); Globulin 3.1 g/dL (1.3-4.6); Glomerular Filtration Rate 123.9 mL/min (90-130); Glucose 98 mg/dL (65-115); Lipase 43 U/L (13-60); Osmolality Calculated 284 mOsm/kg (285-295); Potassium 3.9 mmol/L (3.5-5.1); Sodium 139 mmol/L (136-145); Total Bilirubin 0.6 mg/dL (0.15-1.2); Total Protein 7.9 g/dL (6.6-8.7)
[2019-08-01 15:37] LABS: Urine Appearance Clear (CLEAR); Urine Color Straw (Yellow)
[2019-08-01 15:38] LABS: Bilirubin Urine Neg (NEGATIVE); Blood Urine Neg (Negative); Glucose Urine UA Norm (Normal); Ketones Urine Negative (Negative); Leukocyte Esterase Urine Negative (Negative); Nitrate Urine Negative (Negative); Protein Urine Neg (Negative); Specific Gravity, Urine 1.005 (1.005-1.030); Urobilinogen Urine Norm (Negative); pH Urine 7 (5-7)
[2019-08-01 15:39] LABS: Add Urine Culture? No; Bacteria Urine TRACE; Squamous Epithelial Cell Urine 0-4 (0-5)
--- NOTE | 2019-08-01 15:39 | CT_ITS ---
WS: [id number] CT scan of the abdomen and pelvis with IV contrast. Additional two-dimensional coronal and sagittal r econstruction was performed. 08/01/2019 Clinical Data: Abdominal Pain - RT Comparison: CT abdomen and pelvis, 12/14/2014 DLP: 585.[address] scans at [facility] use at least one of these dose optimization techniques: automat ed exposure control; mA and/or kV adjustment per patient size (includes targeted exams where dose is matched to clinical indication); or iterative reconstruction. Findings: The lower lungs show no nodules, masses or effusions. The liver, gallbladder, spleen, adrenal glands and pancreas are normal. The kidneys show equal bilateral contrast excretion with no cyst or masses. The abdominal aorta is normal in size. No appendicitis or diverticulitis is seen. The stomach, small bowel and colon show no abnormalities. No abscess, adenopathy, ascites, mass, obstruction or free air is seen. The bladder is unremarkable. There is an IUD in the region of the uterus. No inguinal hernia is seen. The bones of the lower thorax, lumbar spine, pelvis, and hips are normal. CT/CT abdomen pelvis w con* [id number] Impression: Negative CT scan of the abdomen and pelvis.
[2019-08-01] MEDS: iohexol 300 mg/mL 100 mL Btl IV (16:51)
[2019-08-01 17:41] VITALS: BP 119/65; PULSE 59; RESP 18; O2SAT 98
--- NOTE | 2019-08-02 13:56 | DCPLANNER ---
wellness spa manager had message to schedule a follow up appointment for patient with [facility] and [facility]. wellness spa manager called [facility], gave clinic patients information. wellness spa manager was told that patients information, was told that patients information would be printed and reviewed. wellness spa manager called [facility], spoke with Svetlana, a follow up appointment was scheduled for Saturday, August 10, 2019 at 11:[address] Scott. wellness spa manager called patient and informed patient of the scheduled appointment and that a referral had been made to [facility].
--- NOTE | 2019-08-03 09:12 | DCPLANNER ---
Patient has a follow up appointment scheduled for Tuesday, August 13, 2019 with [facility]. Clinic will call patient with appointment information.
--- NOTE | 2019-08-24 14:57 | DCPLANNER ---
Patient did attend appointments scheduled with [facility] and [facility].
== END 2019-08-01 17:42 | disposition home or self-care (01) ==
PROVIDERS: Emergency Provider Emergency Medicine; Family Provider Family Medicine; PCP Family Medicine
DX: R10.9 Unspecified abdominal pain (principal); F17.210 Nicotine dependence, cigarettes, uncomplicated
CPT/HCPCS: 12345; 36415; 74177; 76705; 76830; 80053; 81001; 83690; 84703; 85025; 96361; 96374; 96375; 99282; 99283; J2270; J2405; J7030; Q9967

== ENCOUNTER → 2019-08-22 15:55 | Outpatient (BNVA) | payer MEDICAID, SELFPAY | PROVIDERS: Family Provider Family Medicine; PCP Family Medicine; Referring Provider Emergency Medicine; Visit Provider Obstetrics & Gynecology Female Pelvic Medicine and Reconstructive Surgery | DX: R10.2 Pelvic and perineal pain (principal); Z86.19 Personal history of other infectious and parasitic diseases; F17.200 Nicotine dependence, unspecified, uncomplicated; R10.31 Right lower quadrant pain | CPT/HCPCS: 81000; 87491; 87591; 87661 ==

== ENCOUNTER → 2019-09-13 09:19 | Outpatient (BNVA) | payer MEDICAID, SELFPAY | PROVIDERS: Family Provider Family Medicine; PCP Family Medicine; Visit Provider Nurse Practitioner | DX: M51.16 Intervertebral disc disorders with radiculopathy, lumbar region (principal); M54.9 Dorsalgia, unspecified; F17.200 Nicotine dependence, unspecified, uncomplicated; Z79.891 Long term (current) use of opiate analgesic; Z71.6 Tobacco abuse counseling | CPT/HCPCS: 99214 ==

== ENCOUNTER 2019-09-25 12:28 | Emergency (ER) | payer MEDICAID, SELFPAY ==
[2019-09-25 12:39] VITALS: BP 118/74; PULSE 88; RESP 14; TEMP 36.6; O2SAT 100; BMI 21.9
[2019-09-25 13:52] VITALS: BP 126/78; PULSE 76; RESP 18; O2SAT 98
--- NOTE | 2019-10-08 00:25 | W.ED.BACK ---
HPI - Back Pain/Injury General: Chief Complaint: Back Pain/Injury Stated Complaint: back pain Time Seen by Provider: 09/25/19 13:38 History of Present Illness: HPI Narrative: Chronic low back pain at the pain medicine MD elicited complaint: back pain Pertinent past history: prior back pain Onset (ago): year(s) Timing: constant and progressively worsening Severity: moderate Similar Symptoms Previously: Yes Quality: aching Location: lumbar spine Radiation: none Exacerbating factors: movement, walking and lifting Relieving factors: immobilization Associated symptoms: Reports no associated symptoms; Deny abdominal pain, chills, fever(s), nausea or vomiting Review of Systems Const: Denies: fever(s), chills or body aches Eyes: Denies: change in vision or blurry vision ENMT: Denies: throat pain or nasal congestion Card: Denies: chest pain or dyspnea on exertion Resp: Denies: dyspnea, productive cough or non-productive cough GI: Denies: abdominal pain, nausea or vomiting Musc: Reports: back pain; Denies: extremity pain Skin/Breast: Denies: rash Neuro: Denies: headache(s) Psych: Denies: anxiety or depression Gómez/Lymph: Denies: easy bruising PFSH ED PFSH: Medical History (Updated 10/03/19 @ 00:00 by ) Displacement of lumbar disc with radiculopathy Gastric ulcer Pelvic inflammatory disease Peripheral neuralgia Surgical History H/O esophagogastroduodenoscopy Previous back surgery 06/08/2018- Dr. Lizama, bilateral L4-L5 hemilaminotomy/discectomy/foraminotomy S/P plastic surgery 2007 after dog bite to face Family History Grandmother Lung cancer maternal Mother Ovarian cancer Denies family history of Anesthesia complication Bleeding disorder Social History Smoking and tobacco status: current every day smoker cigarettes Packs smoked per day: 0.5 Alcohol intake: never History of recent travel: No Female Reproductive History: Para: 2 Spontaneous abortions: Yes (2) Physical Exam Const: COMMON NORMALS: no acute distress, average body habitus and patient oriented x3 HENMT: COMMON NORMALS: normocephalic HEAD & SCALP: normal to inspection and normocephalic FACE & SINUS: normal facial exam Eye: COMMON NORMALS: conjunctivae normal GENERAL EYE: appearance normal, both eyes and all related structures CONJUNCTIVA: Yes conjunctivae normal Neck/C-Spine: COMMON NORMALS: no JVD Chest: COMMONS NORMALS: normal inspection of the chest Resp: COMMON NORMALS: normal respiratory effort and clear to auscultation bilaterally AUSCULTATION: clear to auscultation bilaterally Cardio: COMMON NORMALS: no JVD, regular rate and regular rhythm RATE: regular rate RHYTHM: regular rhythm GI: COMMON NORMALS: Normal to inspection, nondistended, normoactive bowel sounds present Back/Pelvis: COMMON NORMALS: negative for straight leg raise negative bilaterally OTHER: Straight leg lift positive from her sitting in a chair no numbness or seizures noted in lower extremities is able to ambulate Extremity: COMMON NORMALS: normal to inspection and full ROM Neuro: COMMON NORMALS: patient oriented x3 Course Vital Signs: Vital signs: Vital Signs Temperature 97.8 F 09/25/19 12:39 Pulse Rate 76 09/25/19 13:52 Respiratory Rate 18 09/25/19 13:52 Blood Pressure 126/78 09/25/19 13:52 Pulse Oximetry 98 09/25/19 13:52 Discharge Plan Discharge Patient Disposition: Home, Self-Care Clinical Impression: Chronic low back pain Condition: Stable Prescriptions: New Medrol (Jim) 4 mg tablets,dose pack See Rx Instructions .ROUTE .COMPLEX Qty: 21 RF: 0 No Action Mirena 20 mcg/24 hours (5 yrs) 52 mg intrauterine device See Rx Instructions .ROUTE .COMPLEX RF: 0 ibuprofen 800 mg tablet 800 mg PO Q8H PRNRF: 0 nitrofurantoin macrocrystal 100 mg capsule 100 mg PO BID Qty: 7 RF: 0 hydrocodone-acetaminophen 10-325 mg tablet 1 tab PO QID PRN (Reason: pain) 30 Days Qty: 120 RF: 0 hydrocodone-acetaminophen 10-325 mg tablet 1 tab PO Q6H PRN (Reason: pain) 30 Days Qty: 120 RF: 0 Discharge Orders: Discharge Order (Routine); Ordered 09/25/19 Ordered By: Raghav Carmen Referrals: Nida Cole MD [Primary Care Provider] - Discharge Diet: Usual diet Discharge Activity: Increase activity as tolerated Patient Instructions: Chronic Back Pain (ED) Activity Restrictions/Additional Instructions: Follow-up with medical provider as directed. Take medications as prescribed. Return to the ER or your medical provider if condition worsens. Please read and understand discharge instructions. If any questions ask please. Sign release at [facility] to get records from [facility] so [facility] and get the records to fax to the neurosurgeon up in [place] where referral needs to be made Discharge Date/Time: 09/25/19 13:51 Coding Level of Care Code ED First Line Supervisor for Joseg Fwd Exam Comprehensive
== END 2019-09-25 13:51 | disposition home or self-care (01) ==
PROVIDERS: Emergency Provider Nurse Practitioner Family; PCP Family Medicine
DX: G89.29 Other chronic pain (principal); M54.5 Low back pain; F17.210 Nicotine dependence, cigarettes, uncomplicated
CPT/HCPCS: 12345; 99281

== ENCOUNTER → 2019-11-20 08:18 | Outpatient (BNVA) | payer MEDICAID, SELFPAY | PROVIDERS: PCP Family Medicine; Visit Provider Anesthesiology | DX: M51.16 Intervertebral disc disorders with radiculopathy, lumbar region (principal); M54.9 Dorsalgia, unspecified; F17.210 Nicotine dependence, cigarettes, uncomplicated; Z79.891 Long term (current) use of opiate analgesic | CPT/HCPCS: 99213; 99214 ==

== ENCOUNTER → 2020-01-10 11:12 | Outpatient (BNVA) | payer MEDICAID, SELFPAY | PROVIDERS: PCP Family Medicine; Visit Provider Nurse Practitioner Family | DX: J06.9 Acute upper respiratory infection, unspecified (principal); Z20.828 Contact with and (suspected) exposure to other viral communicable diseases | CPT/HCPCS: 87635 ==

== ENCOUNTER → 2020-01-18 09:32 | Outpatient (BNVA) | payer MEDICAID, SELFPAY | PROVIDERS: PCP Family Medicine; Visit Provider Anesthesiology | DX: M51.16 Intervertebral disc disorders with radiculopathy, lumbar region (principal); M54.9 Dorsalgia, unspecified; F17.210 Nicotine dependence, cigarettes, uncomplicated; Z79.891 Long term (current) use of opiate analgesic; Z71.6 Tobacco abuse counseling | CPT/HCPCS: 99214 ==

== ENCOUNTER 2020-02-19 16:14 | Emergency (ER) | payer MEDICAID, SELFPAY ==
[2020-02-19 16:48] VITALS: BP 106/69; PULSE 86; RESP 18; TEMP 36.6; O2SAT 96; BMI 23.9
--- NOTE | 2020-02-19 17:33 | ED_ITS ---
Documented by User: Shayan De La CruzDO 02/20/20 06:30 HPI - Back Pain/Injury General: Chief Complaint: Back Pain/Injury Stated Complaint: Lower back pain/numbness in right leg Time Seen by Provider: 02/19/20 16:58 History of Present Illness: HPI Narrative: 24 yo female presents complaining of back pain. She fell 1 year ago and had an injury to her back which resulted in a surgery reviewing the old records it was a bilateral L4-5 hemilaminectomy discectomy and foraminotomy at the L4-5 level. She fell recently (about 2 weeks ago) and has had worsening back pain. She seen Dr. Cole and Dr. Michael per her report. She recently seen Dr. Michael who advised her to come to the emergency room for imaging. She has had some urinary incontinence but has not had any fecal incontinence she said no report of urinary retention. She is able to control her bladder but occasionally is having episodes of urinary incontinence. She describes pain in her legs that begins at the knees really more of a stocking glove like sensation. She does have slight decreased feeling she states in her left foot compared to her right. According to the old notes her symptoms were predominantly in the left leg previously. She is observed in the exam room changing positions on the exam table without difficulty or hesitation. She denies any loss of sensation of the perineum or any saddle paresthesias. She is not had any difficulty with walking. She refers most of her pain in the lumbar region. She denies any radiation of pain to the buttocks or thighs in either the right or left leg. MD elicited complaint: back pain Pertinent past history: prior back pain and back surgery Onset (ago): day(s) Timing: constant Severity: moderate Similar Symptoms Previously: Yes Quality: sharp (In the lumbar region) and other (Loss of sensation in the right foot compared to the left) Location: lumbar spine Radiation: left leg below the knee, right leg below the knee and other (No pain to the buttock or thigh) Exacerbating factors: walking Relieving factors: supine Context: fall Associated symptoms: Reports change in bowel habits (Constipation), difficulty walking and tingling/numbness/burning (Numbness and the right lower leg compared to the left); Deny abdominal pain, arthralgias, chills, dysuria, fatigue, fecal incontinence, fever(s), hematuria, myalgias, nausea, numbness, urinary frequency, urinary urgency, vomiting or weakness Work related injury: No Review of Systems Const: Denies: fever(s), chills, body aches, change in appetite, fatigue or malaise ENMT: Denies: throat pain, ear or mastoid pain, nasal discharge or nasal congestion Card: Denies: chest pain, edema, dyspnea on exertion or orthopnea Resp: Denies: dyspnea, productive cough or non-productive cough GI: Reports: change in bowel habits (Constipation); Denies: abdominal pain, nausea, vomiting, hematemesis, coffee ground emesis, diarrhea, constipation or fecal incontinence : Denies: flank pain, difficulty voiding, dysuria, urinary frequency, urinary urgency or hematuria Neuro: Reports: difficulty walking PFSH ED PFSH: Medical History Displacement of lumbar disc with radiculopathy Gastric ulcer Pelvic inflammatory disease Peripheral neuralgia Surgical History H/O esophagogastroduodenoscopy Previous back surgery 06/08/2018- Dr. Lizama, bilateral L4-L5 hemilaminotomy/discectomy/foraminotomy S/P plastic surgery 2007 after dog bite to face Family History Grandmother Lung cancer maternal Mother Ovarian cancer Denies family history of Anesthesia complication Bleeding disorder Social History Smoking and tobacco status: current every day smoker cigarettes Packs smoked per day: 0.5 Alcohol intake: never History of recent travel: No Female Reproductive History: Para: 2 Spontaneous abortions: Yes (2) Physical Exam Const: COMMON NORMALS: no acute distress GENERAL APPEARANCE: cooperative and comfortable ORIENTATION/CONSCIOUSNESS: Yes awake, Yes oriented to person, Yes oriented to place and Yes oriented to time HENMT: COMMON NORMALS: normocephalic, atraumatic and hearing grossly normal bilaterally HEAD & SCALP: normocephalic and atraumatic Eye: COMMON NORMALS: EOMs intact bilaterally, conjunctivae normal and no scleral icterus CONJUNCTIVA: Yes conjunctivae normal Resp: COMMON NORMALS: normal respiratory effort, No retractions, No use of a ccessory muscles and clear to auscultation bilaterally AUSCULTATION: clear to auscultation bilaterally Cardio: COMMON NORMALS: regular rate, regular rhythm and No murmurs present (Cardio) RATE: regular rate RHYTHM: regular rhythm Extremity: COMMON NORMALS: normal to inspection, capillary refill normal, no clubbing, cyanosis or edema, no calf tenderness and no pedal edema Neuro: SENSORIUM/ORIENTATION: Yes oriented to person, Yes oriented to place and Yes oriented to time DEEP TENDON REFLEXES: Right patellar reflex intensity grade: 2+, Left patellar reflex intensity grade: 2+, Right ankle refl ex intensity grade: 2+ and Left ankle reflex intensity grade: 2+ OTHER: Dorsal and plantar flexion strength 5 of 5. There is diminished sensation in the lower leg on the left compared to the right to sharp and light touch it is in a nondermatomal pattern. Straight leg raising test is negative bilaterally. Muscle strength 5 of 5 at the hip flexors except at extension or flexion at the knee as well. Skin: COMMON NORMALS: no rashes or lesions noted GENERAL SKIN EXAM: no rashes or lesions noted Course Vital Signs: Vital signs: Vital Signs Temperature 97.9 F 02/19/20 16:48 Pulse Rate 74 02/19/20 19:24 Respiratory Rate 18 02/19/20 19:24 Blood Pressure 99/64 02/19/20 19:24 Pulse Oximetry 100 02/19/20 19:24 MDM - Back Pain/Injury MDM Narrative: Medical decision making narrative: Discussed with Dr. Michael he is requesting advanced imaging. Reported bladder scan to check for urinary retention in the event that her incontinence is caused by overflow incontinence although discussing with her generally she does have control her bladder but she has had a few instances of incontinence. Care turned over to Dr. Jessica at change of shift. Lab Data: Labs: Lab Results 02/19/20 02/19/20 02/19/20 Range/Units 18:26 18:26 18:43 WBC 6.6 (4.0-10.0) 10^3/ uL RBC 4.99 (4.1-5.3) 10^6/u L Hgb 15.2 (11.5-15.3) g/dL Hct 44.4 (37.0-47.0) % MCV 89.0 (81-99) fL MCH 30.5 (28.0-34.0) pg MCHC 34.2 (30.0-36.0) g/dL RDW 11.9 L (12.1-15.1) % Plt Count 248 (130-400) 10^3/c mm MPV 10.6 H (7.4-10.4) fL Neut % (Auto) 64.7 % Lymph % (Auto) 26.9 % [place] % (Auto) 5.9 % Eos % (Auto) 1.1 % Baso % (Auto) 1.1 % Neut # (Auto) 4.26 (1.8-7.7) 10^3/u L Lymph # (Auto) 1.8 (0.8-4.8) 10^3/u L [place] # (Auto) 0.4 (0.2-0.9) 10^3/u L Eos # (Auto) 0.1 (0.0-0.8) 10^3/u L Baso # (Auto) 0.1 (0.0-0.1) 10^3/u L Nucleated RBC % (a uto) 0 % Nucleated RBCs # 0.0 /100WBC Sodium (136-145) mmol/L Potassium (3.5-5.1) mmol/L Chloride (98-107) mmol/L Carbon Dioxide (22-29) mmol/L Anion Gap (5-19) BUN (6-20) mg/dL Creatinine (0.5-0.9) mg/dL GFR Calculation (90-130) mL/min Glucose (65-115) mg/dL Calculated Osmolal ity (285-295) mOsm/k g Calcium (8.5-10.5) mg/dL Total Bilirubin (0.15-1.2) mg/dL AST (0-32) U/L ALT (0-33) U/L Alkaline Phosphata se (35-105) IU/L Total Protein (6.6-8.7) g/dL Albumin (3.5-5.2) g/dL Globulin (1.3-4.6) g/dL HCG, Qual Negative (Negative) Urine Color Yellow (Yellow) Urine Appearance Clear (CLEAR) Urine pH 6.5 (5-7) Ur Specific Gravit y 1.015 (1.005-1.030) Urine Protein Neg (Negative) Urine Glucose (UA) Norm (Normal) Urine Ketones Negative (Negative) Urine Blood Neg (Negative) Urine Nitrate Negative (Negative) Urine Bilirubin Neg (Negative) Urine Urobilinogen Norm (Negative) mg/dL Ur Leukocyte Dawna ase Negative (Negative) 02/19/20 Range/Units 18:43 WBC (4.0-10.0) 10^3/ uL RBC (4.1-5.3) 10^6/u L Hgb (11.5-15.3) g/dL Hct (37.0-47.0) % MCV (81-99) fL MCH (28.0-34.0) pg MCHC (30.0-36.0) g/dL RDW (12.1-15.1) % Plt Count (130-400) 10^3/c mm MPV (7.4-10.4) fL Neut % (Auto) % Lymph % (Auto) % [place] % (Auto) % Eos % (Auto) % Baso % (Auto) % Neut # (Auto) (1.8-7.7) 10^3/u L Lymph # (Auto) (0.8-4.8) 10^3/u L [place] # (Auto) (0.2-0.9) 10^3/u L Eos # (Auto) (0.0-0.8) 10^3/u L Baso # (Auto) (0.0-0.1) 10^3/u L Nucleated RBC % (a uto) % Nucleated RBCs # /100WBC Sodium 142 (136-145) mmol/L Potassium 3.7 (3.5-5.1) mmol/L Chloride 103 (98-107) mmol/L Carbon Dioxide 27 (22-29) mmol/L Anion Gap 15.7 (5-19) BUN 6 (6-20) mg/dL Creatinine 0.7 (0.5-0.9) mg/dL GFR Calculation 103.7 (90-130) mL/min Glucose 75 (65-115) mg/dL Calculated Osmolal ity 290 (285-295) mOsm/k g Calcium 10.4 (8.5-10.5) mg/dL Total Bilirubin 0.6 (0.15-1.2) mg/dL AST 19 (0-32) U/L ALT 13 (0-33) U/L Alkaline Phosphata se 80 (35-105) IU/L Total Protein 7.3 (6.6-8.7) g/dL Albumin 5.1 (3.5-5.2) g/dL Globulin 2.2 (1.3-4.6) g/dL HCG, Qual (Negative) Urine Color (Yellow) Urine Appearance (CLEAR) Urine pH (5-7) Ur Specific Gravit y (1.005-1.030) Urine Protein (Negative) Urine Glucose (UA) (Normal) Urine Ketones (Negative) Urine Blood (Negative) Urine Nitrate (Negative) Urine Bilirubin (Negative) Urine Urobilinogen (Negative) mg/dL Ur Leukocyte Dawna ase (Negative) Discharge Plan Discharge Patient Disposition: Home Clinical Impression: Lumbar radiculopathy Condition: Stable Prescriptions: New prednisone 10 mg tablets,dose pack See Rx Instructions .ROUTE .COMPLEX Qty: 21 RF: 0 No Action Mirena 20 mcg/24 hours (5 yrs) 52 mg intrauterine device See Rx Instructions .ROUTE .COMPLEX RF: 0 hydrocodone-acetaminophen 10-325 mg tablet 1 tab PO QID PRN (Reason: pain) 30 Days Qty: 120 RF: 0 hydrocodone-acetaminophen 10-325 mg tablet 1 tab PO Q6H PRN (Reason: pain) 30 Days Qty: 120 RF: 0 Discharge Orders: Discharge Order (Routine); Ordered 02/19/20 Ordered By: Frances Dietrich Referrals: Nida Cole MD [Primary Care Provider] - 1-3 days (Call for an appointment tomorrow as Dr. Michael has assured me that someone in that office will arrange further care for you.) Discharge Diet: Advance as tolerated Discharge Activity: Limit activity as instructed Patient Instructions: Lumbar Radiculopathy (ED), Back Pain (ED) Activity Restrictions/Additional Instructions: Please return to the ER immediately for any of the signs or symptoms listed on your discharge instruction sheets, worsening/changing of your symptoms, you are not getting better as quickly as expected, or for ANY other cause or concerns. Return to the ER for new onset of fever, worsening pain, loss of bowel or bladder control, numbness in your groin, leg numbness or weakness, or for any other cause for concern. Be certain to call Dr. Cole/Alec office tomorrow for an appointment to be seen and for referral to the new spine surgeon coming to the [facility]. Discharge Date/Time: 02/19/20 21:13 Sign Out Sign Out Data: Patient Sign Out occurred on 02/19/20 at 18:23. Patient's care was discussed, and care was transferred from to Frances Dietrich. Coding Level of Care Code ED Hub Cutter Apprentice for Chg Fwd Documented by User: Frances Dietrich 02/19/20 21:42 HPI - Back Pain/Injury General: Chief Complaint: Back Pain/Injury Stated Complaint: Lower back pain/numbness in right leg Time Seen by Provider: 02/19/20 16:58 PFSH ED PFSH: Medical History Displacement of lumbar disc with radiculopathy Gastric ulcer Pelvic inflammatory disease Peripheral neuralgia Surgical History H/O esophagogastroduodenoscopy Previous back surgery 06/08/2018- Dr. Lizama, bilateral L4-L5 hemilaminotomy/discectomy/foraminotomy S/P plastic surgery 2007 after dog bite to face Family History Grandmother Lung cancer maternal Mother Ovarian cancer Denies family history of Anesthesia complication Bleeding disorder Social History Smoking and tobacco status: current every day smoker cigarettes Packs smoked per day: 0.5 Alcohol intake: never History of recent travel: No Course Vital Signs: Vital signs: Vital Signs Temperature 97.9 F 02/19/20 16:48 Pulse Rate 74 02/19/20 19:24 Respiratory Rate 18 02/19/20 19:24 Blood Pressure 99/64 02/19/20 19:24 Pulse Oximetry 100 02/19/20 19:24 MDM - Back Pain/Injury MDM Narrative: Medical decision making narrative: 2027 -patient care assumed by me at change of shift from Dr. De La Cruz. Please see his note for his history, physical exam and medical decision-making notes. Tejal tells me that she has had pain ever since her back surgery last year. It has been manageable but then 2 weeks ago she had a fall that has aggravated her pain. She has pain that goes down both legs but on the right side that goes all the way to her foot. The pain on the left side is more in the center of her back and her left buttock. She denies any fevers or chills, she denies abdominal pain, she denies any saddle anesthesia or loss of bowel control. The patient has had some urinary symptoms of which she feels like she urgently needs to go and then will be incontinent but when bladder scan here she only had 70 cc of urine present in her bladder. The patient still does have voluntary control of her bladder to when she feels like she needs to go she can make it to the bathroom usually to urinate when she chooses. Patient adamantly denies any IV drug use. On e xamination the patient has no saddle anesthesia. She has a positive straight leg raising test on the right with the right leg raise all the way down to the ankle. She has a negative straight leg raising test on the left and there are no contralateral positive straight leg raising test. Patient's muscle strength is 5 out of 5 at the hip, knee and ankle and foot of all flexor and extensor muscle groups. Patient has a history of neuropathy but she has no loss sensation to light touch anywhere in her extremities. Deep tendon reflexes are 2/4 at the knee and ankle. Patient is able to ambulate in the emergency department although she does appear to have some pain she states more so when she bears weight on her right leg. Because of the concern of bladder incontinence an MRI had been ordered. Results are pending at this time. Results of the patient's MRIs show no evidence of cord compression or cauda equina syndrome. Patient's exam and history do not suggest this except for the urinary incontinence but there is no sign of UTI. There may be another type of abnormality going on but I see no acute neurosurgical emergency. See no evidence of transverse myelitis, epidural abscess, focal trauma or any other acute threatening problem. I reviewed the case in full with Dr. Michael who initially referred the patient here to the ER. He agrees with this work-up and plan. He or Dr. Cole will see the patient in the office tomorrow for recheck and they will have her referred to the new spine surgeon that will be coming here to [facility] this month. I have reviewed all this plan with the patient and she is in agreement. She denies any other questions or concerns. She agrees with this follow-up plan and agrees to take the medicines I have prescribed for her. Lab Data: Attestation: I reviewed the patient's lab results. Labs: Lab Results 02/19/20 02/19/20 02/19/20 Range/Units 18:26 18:26 18:43 WBC 6.6 (4.0-10.0) 10^3/ uL RBC 4.99 (4.1-5.3) 10^6/u L Hgb 15.2 (11.5-15.3) g/dL Hct 44.4 (37.0-47.0) % MCV 89.0 (81-99) fL MCH 30.5 (28.0-34.0) pg MCHC 34.2 (30.0-36.0) g/dL RDW 11.9 L (12.1-15.1) % Plt Count 248 (130-400) 10^3/c mm MPV 10.6 H (7.4-10.4) fL Neut % (Auto) 64.7 % Lymph % (Auto) 26.9 % [place] % (Auto) 5.9 % Eos % (Auto) 1.1 % Baso % (Auto) 1.1 % Neut # (Auto) 4.26 (1.8-7.7) 10^3/u L Lymph # (Auto) 1.8 (0.8-4.8) 10^3/u L [place] # (Auto) 0.4 (0.2-0.9) 10^3/u L Eos # (Auto) 0.1 (0.0-0.8) 10^3/u L Baso # (Auto) 0.1 (0.0-0.1) 10^3/u L Nucleated RBC % (a uto) 0 % Nucleated RBCs # 0.0 /100WBC Sodium (136-145) mmol/L Potassium (3.5-5.1) mmol/L Chloride (98-107) mmol/L Carbon Dioxide (22-29) mmol/L Anion Gap (5-19) BUN (6-20) mg/dL Creatinine (0.5-0.9) mg/dL GFR Calculation (90-130) mL/min Glucose (65-115) mg/dL Calculated Osmolal ity (285-295) mOsm/k g Calcium (8.5-10.5) mg/dL Total Bilirubin (0.15-1.2) mg/dL AST (0-32) U/L ALT (0-33) U/L Alkaline Phosphata se (35-105) IU/L Total Protein (6.6-8.7) g/dL Albumin (3.5-5.2) g/dL Globulin (1.3-4.6) g/dL HCG, Qual Negative (Negative) Urine Color Yellow (Yellow) Urine Appearance Clear (CLEAR) Urine pH 6.5 (5-7) Ur Specific Gravit y 1.015 (1.005-1.030) Urine Protein Neg (Negative) Urine Glucose (UA) Norm (Normal) Urine Ketones Negative (Negative) Urine Blood Neg (Negative) Urine Nitrate Negative (Negative) Urine Bilirubin Neg (Negative) Urine Urobilinogen Norm (Negative) mg/dL Ur Leukocyte Dawna ase Negative (Negative) 02/19/20 Range/Units 18:43 WBC (4.0-10.0) 10^3/ uL RBC (4.1-5.3) 10^6/u L Hgb (11.5-15.3) g/dL Hct (37.0-47.0) % MCV (81-99) fL MCH (28.0-34.0) pg MCHC (30.0-36.0) g/dL RDW (12.1-15.1) % Plt Count (130-400) 10^3/c mm MPV (7.4-10.4) fL Neut % (Auto) % Lymph % (Auto) % [place] % (Auto) % Eos % (Auto) % Baso % (Auto) % Neut # (Auto) (1.8-7.7) 10^3/u L Lymph # (Auto) (0.8-4.8) 10^3/u L [place] # (Auto) (0.2-0.9) 10^3/u L Eos # (Auto) (0.0-0.8) 10^3/u L Baso # (Auto) (0.0-0.1) 10^3/u L Nucleated RBC % (a uto) % Nucleated RBCs # /100WBC Sodium 142 (136-145) mmol/L Potassium 3.7 (3.5-5.1) mmol/L Chloride 103 (98-107) mmol/L Carbon Dioxide 27 (22-29) mmol/L Anion Gap 15.7 (5-19) BUN 6 (6-20) mg/dL Creatinine 0.7 (0.5-0.9) mg/dL GFR Calculation 103.7 (90-130) mL/min Glucose 75 (65-115) mg/dL Calculated Osmolal ity 290 (285-295) mOsm/k g Calcium 10.4 (8.5-10.5) mg/dL Total Bilirubin 0.6 (0.15-1.2) mg/dL AST 19 (0-32) U/L ALT 13 (0-33) U/L Alkaline Phosphata se 80 (35-105) IU/L Total Protein 7.3 (6.6-8.7) g/dL Albumin 5.1 (3.5-5.2) g/dL Globulin 2.2 (1.3-4.6) g/dL HCG, Qual (Negative) Urine Color (Yellow) Urine Appearance (CLEAR) Urine pH (5-7) Ur Specific Gravit y (1.005-1.030) Urine Protein (Negative) Urine Glucose (UA) (Normal) Urine Ketones (Negative) Urine Blood (Negative) Urine Nitrate (Negative) Urine Bilirubin (Negative) Urine Urobilinogen (Negative) mg/dL Ur Leukocyte Dawna ase (Negative) Imaging Data^: MR Thoracic Spine: Radiologist's impression: [address] [place] [address] Magnetic Resonance Report Signed Patient: Tejal Frederick Unit #: [id number] : 1995 Age/Sex: 24 / F ADM Date: 02/19/20 Loc: ER Room/Bed: Attending Dr: Ordering Provider/Ordering MD: Frances Dietrich DO Date of Service: 02/19/20 Procedure(s): MR thoracic spin wo con* [id number] Accession Number(s): [id number] Report Number: [id number] PROCEDURE INFORMATION: Exam: MR Thoracic Spine Without Contrast Exam date and time: 02/19/2020 7:55 PM Age: 24 years old Clinical indication: Pain in thoracic spine; Additional info: Back pain with urinary incontinence TECHNIQUE: Imaging protocol: Multiplanar magnetic resonance images of the thoracic spine without intravenous contrast. COMPARISON: No relevant prior studies available. FINDINGS: Vertebrae: Unremarkable. Spinal cord: Normal signal. No cord compression. 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 T1-T2: No significant disc disease. No significant spinal canal stenosis. T2-T3: No significant disc disease. No significant spinal canal stenosis. T3-T4: No significant disc disease. No significant spinal canal stenosis. T4-T5: No significant disc disease. No significant spinal canal stenosis. T5-T6: No significant disc disease. No significant spinal canal stenosis. T6-T7: No significant disc disease. No significant spinal canal stenosis. T7-T8: No significant disc disease. No significant spinal canal stenosis. T8-T9: No significant disc disease. No significant spinal canal stenosis. T9-T10: No significant disc disease. No significant spinal canal stenosis. T10-T11: No significant disc disease. No significant spinal canal stenosis. T11-T12: No significant disc disease. No significant spinal canal stenosis. Soft tissues: Unremarkable. MR/MR thoracic spin wo con* [id number] IMPRESSION: Unremarkable spine. Dictated By: Sandor Dawson Signed By: Sandor Dawson Signed Date/Time: 02/19/202002 DD/ 01 MR Lumbar Spine: Radiologist's impression: [address] [address] Magnetic Resonance Report Signed Patient: Tejal Frederick Unit #: [id number] : 1995 Age/Sex: 24 / F ADM Date: 02/19/20 Loc: ER Room/Bed: Attending Dr: Ordering Provider/Ordering MD: Frances Dietrich DO Date of Service: 02/19/20 Procedure(s): MR lumbar spine wo con* [id number] Accession Number(s): [id number] Report Number: [id number] PROCEDURE INFORMATION: Exam: MR Lumbar Spine Without Contrast. Exam date and time: 02/19/2020 7:29 PM Age: 24 years old Clinical indication: Low back pain; Prior surgery; Surgery type: Lumbar 2019; Additional info: Back pain with urinary incontinence TECHNIQUE: Imaging protocol: Multiplanar magnetic resonance images of the lumbar spine without intravenous contrast. COMPARISON: No relevant prior studies available. FINDINGS: Vertebrae: Unremarkable. No findings raising concern for discitis. Spinal cord: Normal signal. No cord compression. No evidence for arachnoiditis. L1-L2: No significant disc disease. No significant spinal canal stenosis. No neural foraminal stenosis. L2-L3: No significant disc disease. No significant spinal canal stenosis. No neural foraminal stenosis. L3-L4: No significant disc disease. No significant spinal canal stenosis. No neural foraminal stenosis. L4-L5: Moderate degenerative disc disease with mild disc space height loss. Discogenic sclerosis with Modic changes. Minimal posterior annular disc bulge not resulting in central canal stenosis or neural foraminal stenosis. L5-S1: No significant disc disease. No significant spinal canal stenosis. No neural foraminal stenosis. Intraperitoneal space: Small amount of free fluid in the cul-de-sac. Simple left ovarian cyst measuring 24 mm x 16 mm. No follow-up recommended. Soft tissues: Unremarkable. MR/MR lumbar spine wo con* [id number] IMPRESSION: Moderate degenerative disc disease with mild disc space height loss L4/L5. Discogenic sclerosis with Modic changes. Minimal posterior annular disc bulge not resulting in central canal stenosis or neural foraminal stenosis. Dictated By: Sandor Dawson Signed By: Sandor Dawson Signed Date/Time: 02/19/202022 DD/ 21 Discharge Plan Discharge Patient Disposition: Home Clinical Impression: Lumbar radiculopathy Condition: Stable Prescriptions: New prednisone 10 mg tablets,dose pack See Rx Instructions .ROUTE .COMPLEX Qty: 21 RF: 0 No Action Mirena 20 mcg/24 hours (5 yrs) 52 mg intrauterine device See Rx Instructions .ROUTE .COMPLEX RF: 0 hydrocodone-acetaminophen 10-325 mg tablet 1 tab PO QID PRN (Reason: pain) 30 Days Qty: 120 RF: 0 hydrocodone-acetaminophen 10-325 mg tablet 1 tab PO Q6H PRN (Reason: pain) 30 Days Qty: 120 RF: 0 Discharge Orders: Discharge Order (Routine); Ordered 02/19/20 Ordered By: Frances Dietrich Referrals: Nida Cole MD [Primary Care Provider] - 1-3 days (Call for an appointment tomorrow as Dr. Michael has assured me that someone in that office will arrange further care for you.) Discharge Diet: Advance as tolerated Discharge Activity: Limit activity as instructed Patient Instructions: Lumbar Radiculopathy (ED), Back Pain (ED) Activity Restrictions/Additional Instructions: Please return to the ER immediately for any of the signs or symptoms listed on your discharge instruction sheets, worsening/changing of your symptoms, you are not getting better as quickly as expected, or for ANY other cause or concerns. Return to the ER for new onset of fever, worsening pain, loss of bowel or bladder control, numbness in your groin, leg numbness or weakness, or for any other cause for concern. Be certain to call Dr. Cole/Alec office tomorrow for an appointment to be seen and for referral to the new spine surgeon coming to the [facility]. Discharge Date/Time: 02/19/20 21:13 Sign Out Sign Out Data: Patient Sign Out occurred on 02/19/20 at 18:23. Patient's care was discussed, and care was transferred from to Frances Dietrich. Coding Level of Care Code ED Hub Cutter Apprentice for Adriana Troy
--- NOTE | 2020-02-19 18:16 | MRR_ITS ---
PROCEDURE INFORMATION: Exam: MR Lumbar Spine Without Contrast. Exam date and time: 02/19/2020 7:29 PM Age: 24 years old Clinical indication: Low back pain; Prior surgery; Surgery type: Lumbar 2019; Additional info: Back pain with urinary incontinence TECHNIQUE: Imaging protocol: Multiplanar magnetic resonance images of the lumbar spine without intravenous contrast. COMPARISON: No relevant prior studies available. FINDINGS: Vertebrae: Unremarkable. No findings raising concern for discitis. Spinal cord: Normal signal. No cord compression. No evidence for arachnoiditis. L1-L2: No significant disc disease. No significant spinal canal stenosis. No neural foraminal stenosis. L2-L3: No significant disc disease. No significant spinal canal stenosis. No neural foraminal stenosis. L3-L4: No significant disc disease. No significant spinal canal stenosis. No neural foraminal stenosis. L4-L5: Moderate degenerative disc disease with mild disc space height loss. Discogenic sclerosis with Modic changes. Minimal posterior annular disc bulge not resulting in central canal stenosis or neural foraminal stenosis. L5-S1: No significant disc disease. No significant spinal canal stenosis. No neural foraminal stenosis. Intraperitoneal space: Small amount of free fluid in the cul-de-sac. Simple left ovarian cyst measuring 24 mm x 16 mm. No follow-up recommended. Soft tissues: Unremarkable. MR/MR lumbar spine wo con* [id number] IMPRESSION: Moderate degenerative disc disease with mild disc space height loss L4/L5. Discogenic sclerosis with Modic changes. Minimal posterior annular disc bulge not resulting in central canal stenosis or neural foraminal stenosis.
--- NOTE | 2020-02-19 18:16 | MRR_ITS ---
PROCEDURE INFORMATION: Exam: MR Thoracic Spine Without Contrast Exam date and time: 02/19/2020 7:55 PM Age: 24 years old Clinical indication: Pain in thoracic spine; Additional info: Back pain with urinary incontinence TECHNIQUE: Imaging protocol: Multiplanar magnetic resonance images of the thoracic spine without intravenous contrast. COMPARISON: No relevant prior studies available. FINDINGS: Vertebrae: Unremarkable. Spinal cord: Normal signal. No cord compression. 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 T1-T2: No significant disc disease. No significant spinal canal stenosis. T2-T3: No significant disc disease. No significant spinal canal stenosis. T3-T4: No significant disc disease. No significant spinal canal stenosis. T4-T5: No significant disc disease. No significant spinal canal stenosis. T5-T6: No significant disc disease. No significant spinal canal stenosis. T6-T7: No significant disc disease. No significant spinal canal stenosis. T7-T8: No significant disc disease. No significant spinal canal stenosis. T8-T9: No significant disc disease. No significant spinal canal stenosis. T9-T10: No significant disc disease. No significant spinal canal stenosis. T10-T11: No significant disc disease. No significant spinal canal stenosis. T11-T12: No significant disc disease. No significant spinal canal stenosis. Soft tissues: Unremarkable. MR/MR thoracic spin wo con* [id number] IMPRESSION: Unremarkable spine.
[2020-02-19 18:43] LABS: HCG Qualitative Urine. Negative (Negative)
[2020-02-19 18:58] LABS: Basophils # 0.1 10^3/uL (0.0-0.1); Basophils % 1.1 %; Eosinophils # 0.1 10^3/uL (0.0-0.8); Eosinophils % 1.1 %; Hematocrit 44.4 % (37.0-47.0); Hemoglobin 15.2 g/dL (11.5-15.3); Lymphocytes # 1.8 10^3/uL (0.8-4.8); Lymphocytes % 26.9 %; Mean Corpuscular HGB Conc 34.2 g/dL (30.0-36.0); Mean Corpuscular Hemoglobin 30.5 pg (28.0-34.0); Mean Platelet Volume 10.6 fL (7.4-10.4); Monocytes # 0.4 10^3/uL (0.2-0.9); Monocytes % 5.9 %; Neutrophils # 4.26 10^3/uL (1.8-7.7); Neutrophils % 64.7 %; Nucleated Red Blood Cells % 0 %; Platelet Count 248 10^3/cmm (130-400); Red Blood Count 4.99 10^6/uL (4.1-5.3); Red Cell Distribution Width 11.9 % (12.1-15.1); White Blood Count 6.6 10^3/uL (4.0-10.0)
--- NOTE | 2020-02-19 19:03 | PC.NURSE ---
bladder scan revea;s less than 50 ml os urine
[2020-02-19 19:12] LABS: Alanine Aminotransferase 13 U/L (0-33); Albumin Level 5.1 g/dL (3.5-5.2); Alkaline Phosphatase 80 IU/L (35-105); Anion Gap 15.7 (5-19); Aspartate Amino Transferase 19 U/L (0-32); Blood Urea Nitrogen 6 mg/dL (6-20); Calcium 10.4 mg/dL (8.5-10.5); Carbon Dioxide 27 mmol/L (22-29); Chloride 103 mmol/L (98-107); Globulin 2.2 g/dL (1.3-4.6); Glomerular Filtration Rate 103.7 mL/min (90-130); Glucose 75 mg/dL (65-115); Osmolality Calculated 290 mOsm/kg (285-295); Potassium 3.7 mmol/L (3.5-5.1); Sodium 142 mmol/L (136-145); Total Bilirubin 0.6 mg/dL (0.15-1.2); Total Protein 7.3 g/dL (6.6-8.7)
[2020-02-19 19:24] VITALS: BP 99/64; PULSE 74; RESP 18; O2SAT 100
[2020-02-19] MEDS: sodium chloride 0.9% 1,000 ML 100 ML IV (19:42)
[2020-02-19 20:14] LABS: Add Urine Microscopic? NO
[2020-02-19 20:20] LABS: Bilirubin Urine Neg (Negative); Blood Urine Neg (Negative); Glucose Urine UA Norm (Normal); Ketones Urine Negative (Negative); Leukocyte Esterase Urine Negative (Negative); Nitrate Urine Negative (Negative); Protein Urine Neg (Negative); Specific Gravity, Urine 1.015 (1.005-1.030); Urine Appearance Clear (CLEAR); Urine Color Yellow (Yellow); Urobilinogen Urine Norm (Negative); pH Urine 6.5 (5-7)
[2020-02-19] MEDS: HYDROcodone-acetaminophen 5-325 mg Tablet 1 TAB PO (21:07)
[2020-02-19] MEDS: cyclobenzaprine 10 mg Tablet PO (21:07)
[2020-02-19] MEDS: ketorolac 30 mg/mL INJ 10 MG IVP (21:07)
[2020-02-19] MEDS: predniSONE 20 mg Tablet 60 MG PO (21:07)
== END 2020-02-19 21:13 | disposition home or self-care (01) ==
PROVIDERS: Family Medicine; Emergency Provider Emergency Medicine; PCP Family Medicine
DX: M54.16 Radiculopathy, lumbar region (principal); F17.210 Nicotine dependence, cigarettes, uncomplicated
CPT/HCPCS: 12345; 51798; 72146; 72148; 80053; 81003; 81025; 85025; 96361; 96374; 96375; 99282; 99283; J1885; J7030; J7512

== ENCOUNTER → 2020-03-19 08:59 | Outpatient (BNVA) | payer MEDICAID, SELFPAY | PROVIDERS: PCP Family Medicine; Visit Provider Anesthesiology | DX: M51.16 Intervertebral disc disorders with radiculopathy, lumbar region (principal); M54.9 Dorsalgia, unspecified; F17.210 Nicotine dependence, cigarettes, uncomplicated; Z79.891 Long term (current) use of opiate analgesic | CPT/HCPCS: 99212; 99214 ==

== ENCOUNTER → 2020-04-07 08:48 | Outpatient (BNVA) | payer MEDICAID, SELFPAY | PROVIDERS: PCP Family Medicine; Referring Provider Family Medicine; Visit Provider Specialist | DX: G57.32 Lesion of lateral popliteal nerve, left lower limb (principal); G43.019 Migraine without aura, intractable, without status migrainosus; F17.210 Nicotine dependence, cigarettes, uncomplicated | CPT/HCPCS: 95886; 95909; 99213 ==

== ENCOUNTER → 2020-04-08 08:48 | Outpatient (BNVA) | payer MEDICAID, SELFPAY | PROVIDERS: PCP Family Medicine; Visit Provider Licensed Practical Nurse | DX: M51.17 Intervertebral disc disorders with radiculopathy, lumbosacral region (principal); M96.1 Postlaminectomy syndrome, not elsewhere classified; M46.1 Sacroiliitis, not elsewhere classified; G57.30 Lesion of lateral popliteal nerve, unspecified lower limb; M51.26 Other intervertebral disc displacement, lumbar region; F17.210 Nicotine dependence, cigarettes, uncomplicated | CPT/HCPCS: 99214 ==

== ENCOUNTER 2020-04-23 07:50 | Outpatient (CLI) | payer MEDICAID, SELFPAY ==
--- NOTE | 2020-04-23 08:00 | MR_ITS ---
WS: [id number] MRI LUMBAR SPINE NONCONTRAST HISTORY: M51.17 - Intervertebral disc disorders with radiculopathy, lumbosacral region COMPARISON: 02/19/2020 TECHNIQUE: Sagittal and axial multisequence imaging is submitted. Sagittal and axial T1 fat sat seque nces post-ProHance 13 cc IV. Mild straightening of the normal lumbar lordosis. Moderate disc space narrowing and desiccation at L4 -5 with marrow edema in the adjacent endplates. No fractures. Status post partial L4-5 discectomy and hemilaminectomy. Thecal sac is widely patulous at this level and there is some very mild soft tissue enhancement and gliosis. Conus terminates normally at L1-2 disc level. L1-L2: Normal. L2-L3: Normal. L3-L4: Normal. L4-L5: Mild annular disc bulging and central disc protrusion. No significant stenosis. No recurrent s ignificant disc herniations. L5-S1: Normal. RIGHT ovarian cyst measures 3.8 x 3.2 cm. On the postcontrast images there is mild enhancement of the cyst wall. There are small facet joint cyst on the RIGHT at the L4-5 level and on the LEFT at L3-4. The cyst ext ends posterior and not towards the thecal sac. MR/MR lumbar spine wo/w con [id number] IMPRESSION: 1. Postsurgical changes at L4-5 and laminectomy defects. Similar to prior stud ies with no recurrent stenosis. 2. Tiny central disc protrusion at L4-5 without contact on the nerve roots. 3. RIGHT ovarian cyst measures 3.8 x 3.2 cm.
== END 2020-04-23 07:51 | disposition home or self-care (01) ==
LOC: RADWPI 07:55
PROVIDERS: PCP Family Medicine; Visit Provider Licensed Practical Nurse
DX: M51.17 Intervertebral disc disorders with radiculopathy, lumbosacral region (principal); M96.1 Postlaminectomy syndrome, not elsewhere classified; N83.201 Unspecified ovarian cyst, right side; M51.26 Other intervertebral disc displacement, lumbar region
CPT/HCPCS: 72158; A9579

== ENCOUNTER → 2020-05-06 10:48 | Outpatient (BNVA) | payer MEDICAID, SELFPAY | PROVIDERS: PCP Family Medicine; Visit Provider Licensed Practical Nurse | DX: M46.1 Sacroiliitis, not elsewhere classified (principal); G57.32 Lesion of lateral popliteal nerve, left lower limb; M51.26 Other intervertebral disc displacement, lumbar region; M96.1 Postlaminectomy syndrome, not elsewhere classified; F17.210 Nicotine dependence, cigarettes, uncomplicated | CPT/HCPCS: 99213 ==

== ENCOUNTER → 2020-05-15 13:41 | Outpatient (BNVA) | payer MEDICAID, SELFPAY | PROVIDERS: PCP Family Medicine; Visit Provider Anesthesiology | DX: M51.16 Intervertebral disc disorders with radiculopathy, lumbar region (principal); M51.26 Other intervertebral disc displacement, lumbar region; M54.9 Dorsalgia, unspecified; M96.1 Postlaminectomy syndrome, not elsewhere classified; F17.210 Nicotine dependence, cigarettes, uncomplicated; Z79.891 Long term (current) use of opiate analgesic; Z71.6 Tobacco abuse counseling | CPT/HCPCS: 99214 ==

== ENCOUNTER 2020-05-24 23:23 | Emergency (ER) | payer MEDICAID, SELFPAY ==
[2020-05-24 23:27] VITALS: BP 127/71; PULSE 91; RESP 18; TEMP 36.4; O2SAT 98; BMI 23.0
--- NOTE | 2020-05-24 23:46 | CTR_ITS ---
PROCEDURE INFORMATION: Exam: CT Abdomen And Pelvis With Contrast Exam date and time: 05/24/2020 12:06 AM Age: 24 years old Clinical indication: Abdominal pain; Localized; Right lower quadrant (rlq); Additional info: Rlq pain TECHNIQUE: Imaging protocol: Computed tomography of the abdomen and pelvis with intravenous contrast. Radiation optimization: All CT scans at this facility use at least one of these dose optimization techniques: automated exposure control; mA and/or kV adjustment per patient size (includes targeted exams where dose is matched to clinical indication); or iterative reconstruction. Contrast material: OMNI 300; Contrast volume: 95 ml; Contrast route: INTRAVENOUS (IV); COMPARISON: CT abdomen pelvis w con* [id number] 08/01/2019 4:46 PM RADIATION DOSE METRICS: Total DLP (mGy-cm): 329.39 FINDINGS: Liver: Unremarkable.No mass. Gallbladder and bile ducts: Normal. No calcified stones. No ductal dilation. Pancreas: Normal. No ductal dilation. Spleen: Normal. No splenomegaly. Adrenal glands: Normal. No mass. Kidneys and ureters: There is no evidence of hydronephrosis. There is no evidence of renal calcifications. Stomach and bowel: There is no evidence of intestinal perforation or obstruction. There is moderately excessive colonic stool content. There is no evidence of colitis/diverticulitis. Appendix: A normal appendix is identified. Intraperitoneal space: There is a small amount of fluid in the pelvis. Vasculature: Unremarkable.No abdominal aortic aneurysm. Lymph nodes: Unremarkable.No enlarged lymph nodes. Urinary bladder: Unremarkable as visualized. Reproductive: An intrauterine device is present within the endometrial cavity. The left ovary/adnexa is unremarkable. There is a 3.2 cm partially collapsed right ovarian cyst. Bones/joints: Unremarkable. No acute fracture. Soft tissues: Unremarkable. CT/CT abdomen pelvis w con* [id number] IMPRESSION: 1. There is a 3.2 cm partially collapsed right ovarian cyst. There is a small amount fluid in the right adnexa and pelvis. 2. No additional acute abnormality. Unremarkable appendix. No bowel thickening or inflammatory changes. Radiation Dose CTDIVOL = (mGy): DLP = 329.39 (mGy-cm)
[2020-05-24 23:52] LABS: Add Urine Microscopic? NO
[2020-05-24 23:57] LABS: Basophils # 0.1 10^3/uL (0.0-0.1); Basophils % 1.1 %; Eosinophils # 0.1 10^3/uL (0.0-0.8); Eosinophils % 1.2 %; Hematocrit 40.1 % (37.0-47.0); Lymphocytes # 2.1 10^3/uL (0.8-4.8); Lymphocytes % 32.8 %; Mean Corpuscular HGB Conc 34.9 g/dL (30.0-36.0); Mean Corpuscular Hemoglobin 30.4 pg (28.0-34.0); Mean Corpuscular Volume 87.2 fL (81-99); Mean Platelet Volume 10.9 fL (7.4-10.4); Monocytes # 0.4 10^3/uL (0.2-0.9); Monocytes % 5.9 %; Neutrophils # 3.79 10^3/uL (1.8-7.7); Neutrophils % 58.8 %; Nucleated Red Blood Cells % 0 %; Platelet Count 248 10^3/cmm (130-400); Red Cell Distribution Width 11.8 % (12.1-15.1); White Blood Count 6.4 10^3/uL (4.0-10.0)
[2020-05-25 00:01] LABS: HCG, Serum Qual Negative (Negative)
[2020-05-25 00:02] LABS: Bilirubin Urine Neg (Negative); Blood Urine Neg (Negative); Glucose Urine UA Norm (Normal); Ketones Urine Negative (Negative); Leukocyte Esterase Urine Negative (Negative); Nitrate Urine Negative (Negative); Protein Urine Neg (Negative); Urine Appearance Clear (CLEAR); Urine Color Yellow (Yellow); Urobilinogen Urine 1 mg/dL (Negative); pH Urine 5 (5-7)
[2020-05-25 00:05] VITALS: BP 101/70; PULSE 87; RESP 18; O2SAT 97
[2020-05-25] MEDS: sodium chloride 0.9% 1,000 ML 999 ML IV (00:06)
[2020-05-25] MEDS: ketorolac 30 mg/mL INJ IVP (00:06)
[2020-05-25 00:08] VITALS: RESP 18; O2SAT 97
[2020-05-25] MEDS: ondansetron 2 mg/ML SDV 2 mL 4 MG IVP (00:08)
[2020-05-25] MEDS: morphine 4 mg/mL SDV 1 mL IVP (00:08)
[2020-05-25 00:12] LABS: Alanine Aminotransferase 15 U/L (0-33); Albumin Level 4.3 g/dL (3.5-5.2); Alkaline Phosphatase 77 IU/L (35-105); Aspartate Amino Transferase 26 U/L (0-32); Blood Urea Nitrogen 8 mg/dL (6-20); C Reactive Protein 0.4 mg/L (0.0-4.9); Calcium 9.7 mg/dL (8.5-10.5); Carbon Dioxide 25 mmol/L (22-29); Chloride 103 mmol/L (98-107); Creatinine Clr Calc Pharmacy 126.6763; Globulin 2.7 g/dL (1.3-4.6); Glomerular Filtration Rate 123.9 mL/min (90-130); Glucose 95 mg/dL (65-115); Lipase 56 U/L (13-60); Osmolality Calculated 282 mOsm/kg (285-295); Sodium 137 mmol/L (136-145); Total Bilirubin 0.6 mg/dL (0.15-1.2)
[2020-05-25 00:13] VITALS: O2SAT 100
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
[2020-05-25 00:30] VITALS: BP 100/65; PULSE 63; RESP 18; O2SAT 97
--- NOTE | 2020-05-25 00:46 | PC.NURSE ---
waiting for results
[2020-05-25 01:00] VITALS: BP 105/64; PULSE 57; RESP 18; O2SAT 98
[2020-05-25 01:35] VITALS: BP 95/63; PULSE 66; RESP 18; O2SAT 100
== END 2020-05-25 01:36 | disposition home or self-care (01) ==
PROVIDERS: Emergency Provider Emergency Medicine; PCP Family Medicine
DX: N83.201 Unspecified ovarian cyst, right side (principal); F17.210 Nicotine dependence, cigarettes, uncomplicated
CPT/HCPCS: 12345; 74177; 80053; 81003; 83690; 84703; 85025; 86140; 96361; 96374; 96375; 99283; J1885; J2270; J2405; J7030; Q9967

== ENCOUNTER → 2020-06-16 08:59 | Outpatient (BNVA) | payer MEDICAID, SELFPAY | PROVIDERS: PCP Family Medicine; Visit Provider Obstetrics & Gynecology | DX: N83.201 Unspecified ovarian cyst, right side (principal) | CPT/HCPCS: 76830 ==

== ENCOUNTER → 2020-06-26 15:43 | Outpatient (BNVA) | payer MEDICAID, SELFPAY | PROVIDERS: PCP Family Medicine; Visit Provider Obstetrics & Gynecology | DX: R10.2 Pelvic and perineal pain (principal); G89.29 Other chronic pain; Z01.818 Encounter for other preprocedural examination | CPT/HCPCS: 87635 ==

== ENCOUNTER 2020-07-02 11:11 | Day surgery (SDC) | payer MEDICAID, SELFPAY ==
[2020-06-30 13:06] VITALS: BMI 22.1
[2020-06-30 13:22] LABS: Add Urine Microscopic? NO
[2020-06-30 13:27] LABS: OR HCG Qualitative Urine Negative (Negative)
--- NOTE | 2020-06-30 13:30 | ANES.PREANE2 ---
Pre-Anesthetic Assessment Pre-Anesthetic Assessment: Height/Weight: Height 1.6 m Weight 56.699 kg Preop Diagnosis: Chronic pelvic pain Proposed Procedure: Operation Date: 07/02/20 12:45 Proposed Procedures p Laparoscopy 02743 R10.2(Not Applicable) - Wing Raymond MD Was Beta Floyd taken within 24 hours: N/A Social: Social History: Tobacco and No alcohol Exam: Pre-Anes Outpt Exam: alert, oriented x 3, clear to auscultation bilaterally and regular rate & rhythm Airway: Submandibular: WNL Cervical ROM: WNL MP: 2 Additional comments: Multiple caries Pulmonary: Pulmonary: COPD Musc/skel: Musc/skel: Lower Back Pain Comments: chronic opioid Anesthetic Plan: Anesthesia: General Risk of > 500 ml blood loss (7ml/kg in children): No PFSH Anesthesia PFSH: Medical History Bilateral sacroiliitis Displacement of lumbar disc with radiculopathy Displacement of lumbar intervertebral disc Gastric ulcer Lumbar post-laminectomy syndrome Pelvic inflammatory disease Peripheral neuralgia Right ovarian cyst Surgical History H/O esophagogastroduodenoscopy Previous back surgery 06/08/2018- Dr. Lizama, bilateral L4-L5 hemilaminotomy/discectomy/foraminotomy S/P plastic surgery 2007 after dog bite to face Family History Grandmother Lung cancer maternal Mother Ovarian cancer Denies family history of Anesthesia complication Bleeding disorder Social History Smoking and tobacco status: current every day smoker cigarettes Packs smoked per day: 0.5 Alcohol intake: never Female Reproductive History: Para: 2 Spontaneous abortions: Yes (2) Data Anesthesia CBC & Chem 7: 06/30/20 13:15 06/30/20 13:15 Other Labs: Laboratory Results - last 48 hr 06/30/20 13:15 Urine HCG, Qual Negative Cardiac Studies: No Data to Display
[2020-06-30 13:31] LABS: Blood Urine Neg (Negative); Glucose Urine UA Norm (Normal); Ketones Urine Negative (Negative); Nitrate Urine Negative (Negative); Protein Urine Neg (Negative); Specific Gravity, Urine 1.015 (1.005-1.030); Urine Appearance Clear (CLEAR); Urine Color Yellow (Yellow); pH Urine 7 (5-7)
[2020-06-30 13:32] LABS: Bilirubin Urine Neg (Negative); Leukocyte Esterase Urine Negative (Negative); Urobilinogen Urine Norm (Negative)
[2020-06-30 13:36] LABS: Basophils # 0.1 10^3/uL (0.0-0.1); Basophils % 1.1 %; Eosinophils # 0.1 10^3/uL (0.0-0.8); Eosinophils % 1.1 %; Hematocrit 42.1 % (37.0-47.0); Hemoglobin 14.2 g/dL (11.5-15.3); Lymphocytes # 1.2 10^3/uL (0.8-4.8); Lymphocytes % 28.5 %; Mean Corpuscular HGB Conc 33.7 g/dL (30.0-36.0); Mean Corpuscular Hemoglobin 30.7 pg (28.0-34.0); Mean Corpuscular Volume 90.9 fL (81-99); Mean Platelet Volume 10.7 fL (7.4-10.4); Monocytes # 0.2 10^3/uL (0.2-0.9); Monocytes % 4.6 %; Neutrophils % 64.5 %; Nucleated Red Blood Cells % 0 %; Platelet Count 235 10^3/cmm (130-400); Red Blood Count 4.63 10^6/uL (4.1-5.3); Red Cell Distribution Width 12.1 % (12.1-15.1); White Blood Count 4.4 10^3/uL (4.0-10.0)
[2020-06-30 13:59] LABS: Anion Gap 11.2 (5-19); Blood Urea Nitrogen 8 mg/dL (6-20); Calcium 9.4 mg/dL (8.5-10.5); Carbon Dioxide 28 mmol/L (22-29); Chloride 103 mmol/L (98-107); Glomerular Filtration Rate 122.8 mL/min (90-130); Glucose 89 mg/dL (65-115); Osmolality Calculated 284 mOsm/kg (285-295); Potassium 4.2 mmol/L (3.5-5.1); Sodium 138 mmol/L (136-145)
[2020-07-02] VITALS (7 sets, daily range): BP systolic 93–108; BP diastolic 55–76; PULSE 55–82; RESP 15–18; TEMP 36.2–36.9; O2SAT 97–100
[2020-07-02 11:42] LABS: OR HCG Qualitative Urine Negative (Negative)
[2020-07-02] MEDS: sodium chloride 0.9% 1,000 ML 30 ML IV (11:45)
[2020-07-02] MEDS: scopolamine 1.5 Patch 1 PATCH TRANSDERMA (11:45)
--- NOTE | 2020-07-02 12:43 | P.ANESUD_ITS ---
Pre-Anesthetic Update Pre-Anesthetic Assessment: Date of Surgery/Procedure: 07/02/20 Preop Rola gnosis: Chronic pelvic pain Proposed Procedure: Operation Date: 07/02/20 12:45 Proposed Procedures p Laparoscopy 02224 R10.2(Not Applicable) - Wing Raymond MD Any changes to Pre-Anesthetic Assessment?: No Last Intake: Intake Last Liquid Date 07/01/20 Last Liquid Time 22:00 Last Solid Date 07/01/20 Last Solid Time 21:00 Labs Last 48hrs: Laboratory Results - last 48 hr 06/30/20 06/30/20 06/30/20 13:15 13:15 13:15 WBC 4.4 RBC 4.63 Hgb 14.2 Hct 42.1 MCV 90.9 MCH 30.7 MCHC 33.7 RDW 12.1 Plt Count 235 MPV 10.7 H Neut % (Auto) 64.5 Lymph % (Auto) 28.5 [place] % (Auto) 4.6 Eos % (Auto) 1.1 Baso % (Auto) 1.1 Neut # (Auto) 2.80 Lymph # (Auto) 1.2 [place] # (Auto) 0.2 Eos # (Auto) 0.1 Baso # (Auto) 0.1 Nucleated RBC % (a uto) 0 Nucleated RBCs # 0.0 Sodium 138 Potassium 4.2 Chloride 103 Carbon Dioxide 28 Anion Gap 11.2 BUN 8 Creatinine 0.6 GFR Calculation 122.8 Glucose 89 Calculated Osmolal ity 284 L Calcium 9.4 Urine Color Urine Appearance Urine pH Ur Specific Gravit y Urine Protein Urine Glucose (UA) Urine Ketones Urine Blood Urine Nitrate Urine Bilirubin Urine Urobilinogen Ur Leukocyte Dawna ase Urine HCG, Qual Negative Blood Type Rho(D) Type Antibody Screen 06/30/20 06/30/20 07/02/20 13:15 13:15 11:30 WBC RBC Hgb Hct MCV MCH MCHC RDW Plt Count MPV Neut % (Auto) Lymph % (Auto) [place] % (Auto) Eos % (Auto) Baso % (Auto) Neut # (Auto) Lymph # (Auto) [place] # (Auto) Eos # (Auto) Baso # (Auto) Nucleated RBC % (a uto) Nucleated RBCs # Sodium Potassium Chloride Carbon Dioxide Anion Gap BUN Creatinine GFR Calculation Glucose Calculated Osmolal ity Calcium Urine Color Yellow Urine Appearance Clear Urine pH 7 Ur Specific Gravit y 1.015 Urine Protein Neg Urine Glucose (UA) Norm Urine Ketones Negative Urine Blood Neg Urine Nitrate Negative Urine Bilirubin Neg Urine Urobilinogen Norm Ur Leukocyte Dawna ase Negative Urine HCG, Qual Negative Blood Type O Positive Rho(D) Type Positive Antibody Screen Negative Vitals: Temperature 98.5 F 07/02/20 11:28 Temperature Source Temporal Artery S can 07/02/20 11:28 Pulse Rate 82 07/02/20 11:28 Pulse Rhythm 07/02/20 11:34 Pulse Strength 3+ Normal 07/02/20 11:34 Respiratory Rate 18 07/02/20 11:28 Blood Pressure 108/67 07/02/20 11:28 Blood Pressure Kim n 80 07/02/20 11:28 Pulse Oximetry 97 07/02/20 11:28 Oxygen Delivery Me thod 07/02/20 11:34 Exam: Pre-Anes Outpt Exam: alert, oriented x 3, clear to auscultation bilat erally and regular rate & rhythm Cardiac Studies: No Data to Display
--- NOTE | 2020-07-02 13:20 | W.PM.OPSUD ---
Surgery/Procedure H&P Update DATE OF PROCEDURE: July 02, 2020 DATE H&P PERFORMED: 06/30/20 H&P UPDATE INFORMATION: I have reviewed H&P completed within last 30 days, I have examined patient prior to procedure and No changes to prior documentation PREOP DIAGNOSIS: Chronic pelvic pain PLANNED PROCEDURE: Operation Date: 07/02/20 12:45 Proposed Procedures p Laparoscopy 09394 R10.2(Not Applicable) - Wing Raymond MD
[2020-07-02] MEDS: metroNIDAZOLE IV 500 MG/100 ML PREMIX 100 MG IV (14:30)
--- NOTE | 2020-07-02 15:10 | P.OP_ITS ---
Operative Report Date of procedure: July 02, 2020 Pre-op Diagnosis: Chronic pelvic pain Post-op diagnosis: same Procedure Done: Diagnostic laparoscopy Pathology: none sent Surgeon: Wing Raymond MD Anesthesia: General Estimated blood loss (mL): 5 IV fluids (mL): 900 Urine output (mL): 150 Complications: None Findings: Pelvic congestion Condition: stable Disposition: PACU Brief History: 25-year-old female with a history of chronic pelvic pain Procedure: DESCRIPTION OF PROCEDURE: After informed consent, the patient was taken to the operating room where general anesthesia was administered. The patient was examined under anesthesia and found to have a normal uterus with normal adnexa. She was placed in the dorsal lithotomy position and prepped and draped in sterile fashion. Pre- Procedure Time-Out verifying the correct patient identity, correct procedure verified with consent, correct site and side, correct patient position, availability of correct implants and any special equipment or requirements was performed and acknowledge by the OR team. A weighted speculum was placed in the vagina, and the anterior lip of cervix was grasped with the single toothed tenaculum. A uterine manipulator was advanced into the endocervical. Tenaculum was removed after uterine manipulator was secured. The speculum was removed from the vagina. An intraumbilical incision was made with a scalpel. While tenting up on the abdomen, a Verres needle with sleeve was admitted into the intra-abdominal cavity. A saline drop test was performed and noted to be within normal limits. Pneumoperitoneum was attained with 4 liters of carbon dioxide. The Verres needle was removed. A 5 mm trocar and sleeve were admitted into the abdomen and laparoscopic confirmation of location was achieved, A second incision was made 3 cm above the symphysis pubis, and a 5 mm trocar and sleeve were admitted into the abdomen under direct, laparoscopic visualization without complication. A survey revealed normal abdominal anatomy and pelvic survey shows increased size vascular vessels throughout pelvis, normal uterus, left and right adnexa. A 5 mm blunt probe was advanced through the second trocar sleeve, and light manipulation of ovaries and uterus to assess the posterior aspects was performed. Carbon dioxide was allowed to escape from the abdomen. The instruments were removed, and skin cover with a bandage. The instruments were removed from the vagina, and excellent hemostasis was noted. The patient tolerated the procedure well, and sponge, lap and needle count were correct times two. The patient taken to the recovery room in good condition.
[2020-07-02] MEDS: vancomycin 1,000 MG in sodium chloride 0.9% 250 ML 250 MG IV (15:11)
--- NOTE | 2020-07-02 15:45 | ANE.PACU2 ---
Inpatient post-anesthesia follow up: Airway intact: Yes Vital signs: Temperature 97.4 F Pulse Rate 63 Respiratory Rate 15 Blood Pressure 94/59 Pulse Oximetry 100 Oxygen Delivery Me thod Room Air Oxygen Flow Rate 8 Fraction of Inspir ed Oxygen Hydration adequate: Yes Nausea and vomiting: No Pain level: 1 Mental status: Baseline
[2020-07-02] MEDS: ibuprofen 800 mg tablet PO (16:08)
== END 2020-07-02 16:37 | disposition home or self-care (01) ==
PROVIDERS: PCP Family Medicine; Visit Provider Obstetrics & Gynecology
PROC: (CPT 49320; principal; 2020-07-02 12:45)
DX: R10.2 Pelvic and perineal pain (principal); J44.9 Chronic obstructive pulmonary disease, unspecified; F17.210 Nicotine dependence, cigarettes, uncomplicated
CPT/HCPCS: 49320; 36415; 80048; 81003; 81025; 84703; 85025; 86850; 86900; 96365; J2704; J2710; J3010; J3370; J3490; J7030; J7050; S0030

== ENCOUNTER → 2020-08-29 08:12 | Outpatient (BNVA) | payer MEDICAID, SELFPAY | PROVIDERS: PCP Family Medicine; Visit Provider Obstetrics & Gynecology | DX: Z30.431 Encounter for routine checking of intrauterine contraceptive device (principal) | CPT/HCPCS: 76830 ==

== ENCOUNTER → 2020-09-03 09:45 | Outpatient (BNVA) | payer MEDICAID, SELFPAY | PROVIDERS: PCP Family Medicine; Visit Provider Anesthesiology | DX: M51.16 Intervertebral disc disorders with radiculopathy, lumbar region (principal); M51.26 Other intervertebral disc displacement, lumbar region; M46.1 Sacroiliitis, not elsewhere classified; M96.1 Postlaminectomy syndrome, not elsewhere classified; M54.9 Dorsalgia, unspecified; M25.551 Pain in right hip; M25.552 Pain in left hip; F17.210 Nicotine dependence, cigarettes, uncomplicated; Z79.891 Long term (current) use of opiate analgesic | CPT/HCPCS: 99214 ==

== ENCOUNTER → 2020-09-16 10:36 | Outpatient (BNVA) | payer MEDICAID, SELFPAY | PROVIDERS: PCP Family Medicine; Visit Provider Obstetrics & Gynecology | DX: Z30.432 Encounter for removal of intrauterine contraceptive device (principal); T83.32XA Displacement of intrauterine contraceptive device, initial encounter | CPT/HCPCS: 81025 ==

== ENCOUNTER 2020-10-21 15:05 | Outpatient (CLI) | payer MEDICAID, SELFPAY ==
--- NOTE | 2020-10-21 15:30 | XR_ITS ---
NOTE: Report was unsigned for reason: Order was edited. Original Signature date and time was: 10/21/20 @ 1529 WS: [id number] Exam: XR hip BI 2V wo/w pel [id number] Date/Time of Exam: 10/21/2020 3:30 PM Reason For Exam: M25.559 - Pain in unspecified hip No fracture or dislocation. The joint compartments of both hips are well preserved. Normal bilateral soft tissues. [facility] X[facility]XR hip BI 2V wo/w pel [id number] IMPRESSION: 1. Normal right and left hips.
== END 2020-10-21 15:06 | disposition home or self-care (01) ==
LOC: RAD 15:09
PROVIDERS: PCP Family Medicine; Visit Provider Anesthesiology
DX: M25.551 Pain in right hip (principal); M25.552 Pain in left hip
CPT/HCPCS: 73521; 73523

== ENCOUNTER → 2020-10-28 08:44 | Outpatient (BNVA) | payer MEDICAID, SELFPAY | PROVIDERS: PCP Family Medicine; Visit Provider Nurse Practitioner | DX: M51.16 Intervertebral disc disorders with radiculopathy, lumbar region (principal); M51.26 Other intervertebral disc displacement, lumbar region; M54.9 Dorsalgia, unspecified; M96.1 Postlaminectomy syndrome, not elsewhere classified; M46.1 Sacroiliitis, not elsewhere classified; G57.32 Lesion of lateral popliteal nerve, left lower limb; M70.62 Trochanteric bursitis, left hip; Y93.9 Activity, unspecified; F17.210 Nicotine dependence, cigarettes, uncomplicated; Z79.891 Long term (current) use of opiate analgesic; Z71.6 Tobacco abuse counseling | CPT/HCPCS: 99214 ==